=== PATIENT | female | born 2000 | race Caucasian/White ===

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

== ENCOUNTER 2024-04-04 14:44 | Inpatient (IN) ==
[2024-04-04 15:54] LABS: Basophils # (auto) 0.02 K/uL (0.00-0.20); Basophils % (auto) 0.2 %; Hematocrit (blood only) 33.8 % (37.0-47.0); Hemoglobin 11.1 g/dl (12.0-16.0); Immature Granulocytes # (auto) 0.03 K/uL (0.01-0.20); Immature Granulocytes % (auto) 0.3 %; Lymphocytes # (auto) 1.86 K/uL (1.20-3.40); Mean Corpuscular Hemoglobin 27.9 pg (25.0-34.0); Mean Corpuscular Hgb Conc 32.8 g/dL (32.0-36.0); Mean Corpuscular Volume 84.9 fL (80.0-100.0); Mean Platelet Volume 9.7 fL (9.4-12.4); Monocytes # (auto) 0.56 K/uL (0.11-0.59); Monocytes % (auto) 5.4 %; Neutrophils # (auto) 7.76 K/uL (1.40-6.50); Neutrophils % (auto) 75.1 %; Platelet Count 304 K/uL (130-400); RDW Standard Deviation 39.9 fL (36.4-46.3); Red Blood Count 3.98 M/uL (4.20-5.40); White Blood Count 10.33 K/ul (4.8-10.8)
[2024-04-04 16:08] LABS: BUN Creatinine Ratio 12.3 (10-20); Bilirubin Direct 0.1 mg/dl (0-0.2); Bilirubin,Total 0.3 mg/dl (0.2-1.0); Calcium 8.1 mg/dl (8.6-10.3); Creatinine Clr Calc Pharmacy 185.8 ml/min; Globulin 3.1 gm/dl (2.5-4.0); Potassium 3.9 mmol/L (3.5-5.1); Total Protein 6.1 gm/dl (6.0-8.3)
[2024-04-04 16:21] LABS: Total Protein Urine Random 5.3 mg/dl (0-11.9)
[2024-04-04 16:26] LABS: Creatinine Urine Random 27.3 mg/dl; Protein Creatinine Ratio Urine 0.2 (0-0.2)
--- NOTE | 2024-04-04 16:43 | History & Physical Report ---
Date of Service April 04, 2024 Assessment & Plan (1) Elevated blood pressure affecting , antepartum: Plan: Induction of labor. Medication to control blood pressure. History of Present Illness Chief Complaint: Elevated blood pressure. Intrauterine 37 weeks 4 days gestation. Primary Care Provider: Mone Robin PA-C Patient is a 24-year-old 1 para 0. She has been well dated with a first trimester ultrasound. Her due date is 04/21/2024. Scheduled for induction on 04/15/2024. Been getting weekly NSTs due to her weight. Received a call from [facility] today. She came in for her NST her blood pressures were elevated. Prior to today they ran in the 124 over 80s range. Today were getting pressures as high as 160/108. She feels good movement. Does not have any symptoms of headache dizziness or epigastric pain. Was placed on a monitor. Monitor sh owed a baseline in the 150s. With good [id number] variability. And several spontaneous accelerations. Allergies Allergy/AdvReac Type Severity Reaction Status Date / Time No Known Allergies Allergy Verified 03/23/24 18:56 Home Medications Medication Instructions Recorded Confirmed Type lamotrigine 25 mg tablet 50 mg PO HS 10/28/23 04/04/24 History lamotrigine 25 mg tablet 50 mg PO QAM 10/28/23 04/04/24 History iron,carbonyl 65 mg-vitamin C 125 1 tab PO DAILY 03/23/24 04/04/24 History mg tablet,delayed release (Vitron-C) sertraline 25 mg tablet 25 mg PO DAILY 03/23/24 04/04/24 History cyanocobalamin (vitamin B-12) 1,000 mcg PO DAILY 04/04/24 04/04/24 History 1,000 mcg tablet vit no.133-ferrous 1 tab PO 1XD 04/04/24 04/04/24 History fumarate 28 mg-folic acid 800 mcg tablet () Past Med/Surg History Problem List Elevated blood pressure affecting , antepartum Decreased movements affecting management of mother, antepartum Near syncope (Acute) Hypertension (Acute) Medical History Bipolar disorder managed with lamictal History of hypertension patient reports having HTN prior to gastric bypass Surgical History History of gastric bypass 2022 Family History Other Family history non-contributory Social History (Updated 04/04/24 @ 15:24 by Salima Robertson RN) Smoking Status: Never smoker Hx Alcohol Use: No Hx Substance Use: No Preferred Language: Macedonian Communication Ability: Effective Visual Impairment: No Limitations Hearing Ability: Normal Systems Requirements Planner Required: No marital status: marital status details: José Manuel Piedra [phone] Current Living Situation: Spouse Current Living Situation Comment: lives with , dog, and cat. changing litter box. 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 Trachea was midline. There was no cervical adenopathy. Lungs are clear to auscultation and percussion. There was no CVA tenderness. Abdomen was consistent with a term size fetus. No tenderness. No calf tenderness. Pelvic exam revealed a vertex presentation cervix was posterior 2 cm dilated 50% effaced moderately soft. -2 station. Results & Data Results & Data Vital Signs (Past 12 Hours) Vital Signs Temp Pulse Resp BP 04/04/24 16:35 108 H 180/115 H 04/04/24 16:20 99 H 183/118 H 04/04/24 16:04 86 160/106 H 04/04/24 15:38 100 H 159/101 H 04/04/24 15:16 93 H 144/95 H 04/04/24 15:05 18 04/04/24 15:05 37.5 C 18 04/04/24 15:02 100 H 139/102 H Diagnostic Findings Elevated blood pressure
[2024-04-04] MEDS ORDERED: CALCIUM CARBONATE 500 MG CHEWABLE TAB PO PRN (16:44)
[2024-04-04] MEDS ORDERED: OXYTOCIN 30 UNITS/NSS 30 UNITS/500 ML BAG IV PRN (16:44)
[2024-04-04] MEDS ORDERED: LIDOCAINE 1% LOCAL 20 ML VIAL INFIL PRN (16:44)
[2024-04-04] MEDS: miSOPROStoL 50 MCG TAB PO ONE (17:16)
[2024-04-04] MEDS: ACETAMINOPHEN 500 MG TAB PO PRN (19:11)
[2024-04-04] MEDS: LABETALOL HCL 100 MG TAB PO SCH (21:32)
[2024-04-04] MEDS: DINOPROSTONE 10 MG INSERT PV ONE (22:15)
[2024-04-04] MEDS: PENICILLIN GK 6 MU in SODIUM CHLORIDE 0.9% 250 ML IV STA (22:19)
--- NOTE | 2024-04-04 22:21 | Obstetrical Progress Note ---
Date of Service April 04, 2024 Subjective Patient is seen and examined. She is a 24-year-old G1, P0 at 37 weeks and 5 days of gestation who was admitted by Dr. Hardy for gestational hypertension, no proteinuria, normal labs. She was started on p.o. Cytotec for cervical ripening. Blood pressures were elevated initially now they are normal with single dose of p.o. labetalol. Patient denies headaches, change in her vision, nausea vomiting, No epigastric no right upper quadrant pain. She denies contractions, leakage of fluid, vaginal bleeding. She reports good movements. Her has been complicated by, 1. Obesity, status post gastric bypass surgery in 2022, 2. GBS positive, 3. Anxiety during she is on Zoloft and Lamictal, Patient denies any other medical problems. She denies history of STDs, she denies history of chlamydia, gonorrhea, herpes. No history of smoking alcohol or drug use. She desires to take her Zoloft and Lamictal tonight. I checked her cervix it is 2 cm dilated 30% effaced, posterior head is ballotable -3, discussed the findings and Cervidil cervical ripening and she accepted Cervidil was inserted without difficulty., heart rate category 1 reassuring, [place] with no contractions. Plan to monitor, check blood pressures regularly, penicillin for GBS, All questions were answered. Results & Data Vital Signs (Past 12 Hours) Vital Signs Temp Pulse Resp BP 04/04/24 22:06 88 04/04/24 22:06 131/82 04/04/24 21:51 85 04/04/24 21:51 127/73 04/04/24 21:32 93 H 04/04/24 21:32 140/84 04/04/24 20:50 90 04/04/24 20:50 120/56 L 04/04/24 20:34 78 04/04/24 20:34 140/78 04/04/24 20:21 90 04/04/24 20:21 143/79 H 04/04/24 20:04 82 04/04/24 20:04 140/83 04/04/24 19:50 84 04/04/24 19:50 147/87 H 04/04/24 19:34 91 H 04/04/24 19:34 141/88 H 04/04/24 19:20 86 04/04/24 19:20 159/80 H 04/04/24 19:10 37.0 C 18 04/04/24 19:07 88 04/04/24 19:07 140/84 04/04/24 19:06 18 04/04/24 19:06 37.0 C 18 04/04/24 18:49 88 04/04/24 18:49 148/83 H 04/04/24 18:34 92 H 04/04/24 18:34 154/88 H 04/04/24 18:23 89 04/04/24 18:23 149/83 H 04/04/24 18:06 92 H 04/04/24 18:06 158/88 H 04/04/24 17:50 88 04/04/24 17:50 148/88 H 04/04/24 17:34 86 04/04/24 17:34 146/89 H 04/04/24 17:19 90 04/04/24 17:19 156/87 H 04/04/24 17:04 80 04/04/24 17:04 142/81 H 04/04/24 16:56 98 H 04/04/24 16:56 161/103 H 04/04/24 16:35 108 H 180/115 H 04/04/24 16:20 99 H 183/118 H 04/04/24 16:04 86 160/106 H 04/04/24 15:38 100 H 159/101 H 04/04/24 15:16 93 H 144/95 H 04/04/24 15:05 18 04/04/24 15:05 37.5 C 18 04/04/24 15:02 100 H 139/102 H
--- OUTSIDE RECORDS SUMMARY | 2024-04-04 22:21 | External Medical Summary | Summary of Care ---
Author Name Unknown Organization [facility] Address [address] [place] [address] Phone [phone] Care Team Providers Care Elevators Inspector Name Role Phone Mone Robin PA-C Primary Care Provider [phone] Reason for Visit * Reason Comments Return Visit Encounter Details Date Type Department Care Team (Late st Contact Info) Description 03/26/2024 3:00 PM EST Office Visit Gynecology/Obstetric [facility] [address] [place] [address] Mo Norwood MD [address] [place] [address] High-risk in third trimester*; Previous gastric bypass affecting , antepartum; Chronic hypertension in ; Bipolar disease during in third trimester (HCC); Obesity in , antepartum; Maternal asthma complicating ; Maternal varicella, non-immune; Choroid plexus cyst of fetus affecting care of mother, antepartum, single or unspecified fetus Allergies No known active allergiesdocumented as of this encounter (statuses as of 03/27/2024) Medications 28-0.8 MG Oral Tablet Take by mouth. Active lamoTRIgine 25 MG Oral Tablet (LaMICtal) Take 2 Tablets by mouth in the morning and 2 Tablets before bedtime. 4 Active Magnesium 500 MG Oral Capsule Take 1 Capsule by mouth in the morning. Active Sertraline HCl 50 MG Oral Tablet (Zoloft) TAKE ONE-HALF TABLET BY MOUTH ONCE DAILY X7DAYS THEN TAKE ONE TABLET DAILY 4 Active Iron-Vitamin C 65-125 MG Oral Tablet (Vitron C)Indications:An tepartum anemia complicating Take 1 Tablet by mouth in the morning. 30 Tablet 5 4 Active Vitamin B-12 1000 MCG Oral Tablet (Cyanocobalamin) Indications:Ante anemia complicating Take 1 Tablet by mouth in the morning. 30 Tablet 5 4 Active OneTouch Verio w/Device KitIndications:O besity in , antepartum Use as directed. Check blood sugars 4x/day for 2 weeks 1 Kit 4 025 Discontin ued(Medic ation List Clean Up) OneTouch Verio In Vitro Strip (Glucose Blood)Indication s:Obesity in , antepartum Use as directed 100 Strip 3 4 025 Discontin ued(Medic ation List Clean Up) OneTouch UltraSoft LancetsIndicatio ns:Obesity in , antepartum Use as directed 100 Each 2 4 025 Discontin ued(Medic ation List Clean Up) Aspirin 81 MG Oral Tablet ChewableIndicati ons:High-risk in first trimester,Chroni c hypertension in ,Obesit y in , antepartum Take 1 Tablet by mouth in the morning. 100 Tablet 3 4 025 Discontin ued(Medic ation List Clean Up) Docusate Sodium 100 MG Oral Capsule (Colace)Indicati ons:Antepartum anemia complicating Take 1 capsule by mouth twice daily as needed. 60 Capsule 5 4 025 Discontin ued(Medic ation List Clean Up) metroNIDAZOLE 0.75 % Vaginal Gel (Metrogel-Vagina l) Administer into the vagina every night at bedtime. For 5 days. 70 g 4 025 Discontin ued(Medic ation List Clean Up) documented as of this encounter (statuses as of 03/27/2024) Active Problems Problem Noted Date Diagnosed Date Antepartum anemia complicating 024 Choroid plexus cysts, , affecting care of mother, antepartum 12/04/2023 Assessment & Plan (12/04/2023 2:15 PM EDT): Reviewed with patient that although choroid plexus cysts (SOAKING PIT OPERATOR) can be associated with an increased risk for aneuploidy (particularly Trisomy 18), when choroid plexus cysts (SOAKING PIT OPERATOR) are noted in isolation of any other abnormalities for a woman who is at low risk (age less than 35, normal genetic screening) choroid plexus cysts (SOAKING PIT OPERATOR) are considered a normal variant of and no further work-up is recommended. They occur in 1-2% of genetically healthy pregnancies, often resolve in the third trimester, and are not associated with neurologic impairment. Maternal varicella, non-immune 09/24/2023 High-risk 09/21/2023 Previous gastric bypass affecting , ant epartum 09/21/2023 Overview (09/25/2023): History of gastric bypass in May 2022 Chronic hypertension in 09/21/2023 Overview (10/08/2023): Diagnosed in 2015 No current antihypertensives Recommend daily low dose ASA Baseline Preeclampsia Labs Lab Results Component Value Date/Time PLT 309 09/21/2023 09:37 AM CREATININE - [facility] 0.7 09/21/2023 09:37 AM AST - [facility] 16 09/21/2023 09:37 AM ALT - [facility] 14 09/21/2023 09:37 AM PROTEIN/ CREATININE RATIO, URINE - [facility] 95 09/21/2023 09:29 AM BP Readings from Last 5 Encounters: 10/05/23 131/86 09/21/23 120/68 01/18/23 128/80 09/18/22 144/98 09/14/22 128/78 Assessment & Plan (01/02/2024 8:41 AM EST): BP Readings from Last 5 Encounters: 01/01/24 120/67 12/05/23 120/70 11/09/23 126/70 10/19/23 124/76 10/05/23 131/86 BP currently stable without medication. Initiate therapy to maintain BP < 140/90. Karen states she has been unable to remember to take her low dose ASA. Would not strongly recommend to initiate therapy at this point, as is most effective when started at < 16 weeks to allow for improved placental development. Thus far BP stable, however Karen has risk factors for the development of pre-e. Assessment & Plan (12/04/2023 1:38 PM EDT): BP Readings from Last 5 Encounters: 11/09/23 126/70 10/19/23 124/76 10/05/23 131/86 09/21/23 120/68 01/18/23 128/80 BP currently stable without medication. Initiate therapy to maintain BP < 140/90. Formal MFM consult rescheduled (has been cancelled twice). Bipolar disease during 09/21/2023 Overview (10/08/2023): Managed with Lamictal Lamictal (Lamotrigine) Lamotrigine is a medication that is used to treat some types of epilepsy (medical condition that causes seizures). It is also used to treat bipolar disorder. A common brand name for lamotrigine is Lamictal. 2. Lamotrigine is cleared from the body faster during . This means that many people who are need to increase their dose of lamotrigine to keep the medication at the right level to work for them. Your healthcare provider can order blood tests to check the levels of medication. People who need to increase the dose of lamotrigine during will also need to work with their healthcare providers after the baby is born to reduce their medication dose. 3. Studies have not found that lamotrigine is associated with a higher chance for miscarriage over the background risk. 4. One study suggested a less than 1% increase in oral clefts (the lip and/or roof of the baby s mouth do not form correctly and need surgery to repair after ), but this finding was not confirmed by other studies. Assessment & Plan (12/04/2023 2:37 PM EDT): Now on lamictal + Zoloft for worsening anxiety. Both are reasonable in . Anxiety may improve or worsen especially during the period; close follow-up with mental health and OB providers encouraged. Obesity in , antepartum 09/21/2023 Overview (10/19/2023): Pregravid BMI 39.31 Class 2 Completed early finger sticks for glucose monitoring, WNL. Will need to repeat this at 26-28 weeks. Assessment & Plan (03/03/2024 3:40 PM EST): She presents for follow-up of growth. She has a history of gastric bypass, CHTN (not on medication), bipolar disease, class II obesity, asthma, and medication exposure (Lamictal). Today's ultrasound notes the following: The estimated weight is appropriate for gestational age in the 27th percentile. The visualized anatomy is unremarkable in appearance. The ARMANDO is normal. Assessment & Plan (02/04/2024 1:48 PM EST): I reviewed the ultrasound. The overall estimated weight is consistent with the 32nd percentile for the gestational age and the anatomy that was visualized appears unremarkable. The amniotic fluid volume is normal at 16 cm and the fetus is in the vertex presentation. Assessment & Plan (12/04/2023 2:35 PM EDT): Low risk NIPT. Unable to complete 1'GTT due to bypass; checked sugars at home. Plan of care reviewed; will schedule serial growth assessments q4-6 weeks. Karen notes that she has struggled with some lower sugars and is meeting with GI nutrition to discuss best diet post-bypass. Assessment & Plan (10/05/2023 3:35 PM EDT): She presents for an early assessment. She has a history of gastric bypass, CHTN, bipolar disease, class II obesity, asthma, and medication exposure (Lamictal). Today's ultrasound notes the following: Single viable intrauterine with biometry consistent with clinical dates. The visualized early anatomy is unremarkable in appearance. Maternal asthma complicating Overview (10/08/2023): Managed with Albuterol as needed 10/08/23 last albuterol use: ---- Denies hospitalizations or intubations due to asthma S/P gastric bypass 01/18/2023 Asthma, mild persistent 06/26/2022 Intermittent asthma with reliever use up to twic e per week 06/26/2022 Deviated nasal septum 02/22/2018 Hypertrophy of both inferior nasal turbinates Hypertension 06/01/2015 Asthma, severity to be determined 04/20/2004 Overview (05/31/2015): ICD-10 update of inactive term NONALLERGIC RHINITIS 04/20/2004 Bipolar disorder Estimated Date of Delivery Comme nts Yes 04/21/2024 Based on last me nstrual period of 07/16/2023 (Exact Date) documented as of this encounter (statuses as of 03/27/2024) Resolved Problems Problem Noted Date Diagnosed Date Resolved Date Asthma in remission 06/26/2022 06/27/19 23 Asthma, moderate persistent 06/26/2022 06/26/2022 Asthma, severe persistent 06/26/2022 BMI 50.0-59.9, adult 06/26/2022 023 Obesity, morbid (more than 1 00 lbs over ideal weight or BMI > 40) 08/01/2021 03/27/2023 Overview: Per Obesity protocol Other specified persistent mood disorders 12/24/2020 06/26/2022 BMI 50.0-59.9, adult 03/17/2019 022 Overview: Per Obesity protocol Body mass index (BMI) of 45. 0 to 49.9 in adult 12/31/2017 04/02/2019 Overview: Per Obesity protocol #1 - Prediabetes 11/26/2017 04/04/2018 Overview: Per Prediabetes protocol #1 Body mass index (BMI) of 40. 0 to 44.9 in adult 11/20/2016 01/04/2018 Overview: Per Obesity protocol #1 HTN, goal below 130/80 06/01/201506/26 documented as of this encounter (statuses as of 03/27/2024) Immunizations Name Administration Dates Next Due DTaP Dipth/Tet/Acell Pertussis (Infanrix), Peds 09/30/2003,10/10/1999,1998,08/20,1998 H1N1 2009 Influenza, IM 12/22/2008 HIB PRP-T, 4 Dose, PF, IM (H iberix, ActHib) 10/10/1999,1998,1998,07/01 HPV Vaccine, 4-Valent 06/22/2011 Hepatitis A, Ped/Adol., 18 y ear and below, 2-Dose 07/12/2011 Hepatitis B, 0-19 yrs 1998,1998,03/22 IPV - Polio Virus Vaccine (Inact) 2003,1998,1998,07/01 MMR - Measles/Mumps/Rubella Vaccine 09/30/2003,0 10/10/1999 Meningococcal Conjugate Vacc ine (Menactra/Menveo) 10/12/2015,07/12/2011 PPD 09/22/2019, 9,04/30/2018,02/15,02/05/2017,02/25/2016,02/18/2016 ,04/13/1999 Pneumococcal Conjugate Vacc, 13 Valent (Prevnar) 10/10/1999 Seasonal Influenza, PF, 6 M & above, IM , (FluLaval or Fluzone) 11/29/2012,11/15/2011,11/22/2010,11/10,11/23/2008,12/09/2007 Seasonal Influenza, Quadriva lent, No Preserve, IM 11/02/2018,12/12/2017 TDAP (age 10 and older)(Boostrix) 07/12/2011 TDAP, Age 7 and older, IM (Adacel) 02/01/2024 Varicella Vaccine (Chicken Pox) 07/12/2011,04/13 documented as of this encounter Social History Tobacco Use Types Packs/Day Years Used Date Smoking Tobacco: Never Smokeless Tobacco: Never Comments:Passive smoke mothe rs and fathers homes. Alcohol Use Standard Drinks/Week Comments No 0 (1 standard drink = 0.6 oz pur e alcohol) PHQ-2 Answer Date Recorded PHQ-2 Score 0 11/05/2018 Hunger Vital Sign Answer Date Recorded Within the past 12 months, y ou worried that your food would run out before you got the money to buy more. Never true 08/24/19 24 Within the past 12 months, t he food you bought just didn't last and you didn't have money to get more. Never true 08/24/2023 [place] Depression Scale Answer Date Recorded [place] Depression Scale Total 5 09/21/2023 The thought of harming myself has occurred to me . Never 09/21/2023 Childcare Answer Date Recorded Do you feel overwhelmed with taking care of a child, family member or friend? No 08/24/2023 Does your family need help f inding childcare? (Household - for ages 0-17 years) Not on file 08/24/2023 Clothing Answer Date Recorded Have you been unable to get clothing when it was really needed? No 08/24/2023 Is your family able to get c lothes or diapers when needed? (Household - for ages 0-17 years) Not on file 08/24/2023 Personal Safety Answer Date Recorded Do you feel unsafe or have concerns for your saf ety? No 08/24/2023 Do you have concerns for you r family's safety? (Household - for ages 0-17 years) Not on file 08/24/2023 Utilities Answer Date Recorded Do you have trouble paying y our heating, water, or electric bill? No 08/24/2023 Is your family able to pay t he heat, water, or electric bill? (Household - for ages 0-17 years) Not on file 08/24/2023 Does your family have access to good internet? (Household - for ages 0-17 years) Not on file 08/24/2023 Employment Status Answer Date Recorded Are you unemployed or without regular income? No 08/24/2023 Does the household have a re gular source of income? (Household - for ages 0-17 years) Not on file 08/24/2023 Social Connections Answer Date Recorded How often do you feel lonely or isolated from th ose around you? Never 08/24/2023 Financial Resource Strain Answer Date R ecorded Do you have any trouble payi ng for your medications, or do you think you might in the future? No 08/24/2023 Does your family have troubl e paying for medicine? (Household - for ages 0-17 years) Not on file 08/24/2023 Transportation Needs Answer Date Record ed Do you have trouble getting a ride to medical visits or work? (Adult - for ages 18 years and over) Not on file 08/24/2023 Does your family have a hard time getting a ride to doctors visits? (Household - for ages 0-17 years) Not on file 08/24/2023 Has lack of transportation k ept you from medical appointments, meetings, work, or from getting things needed for daily living? Check all that apply. Yes, it has kept me from medical appointments;No 08/24/2023 Do you (or your family) have trouble finding or paying for a ride (transportation)? (Household - for ages 0-17 years) Not on file 08/24/2023 Housing Stability Answer Date Recorded Do you currently live in a s helter or have no steady place to sleep at night? No 08/24/2023 Do you think you are at risk of becoming homeless? (Adult - for ages 18 years and over) Not on file 08/24/2023 Does your family worry about paying for your home or becoming homeless? (Household - for ages 0-17 years) Not on file 0 08/24/2023 Are you homeless or worried that you might be in the future? No 08/24/2023 Are you (or your family) kamala eless or worried that you might be in the future? (Household - for ages 0-17 years) Not on file Food Insecurity Answer Date Recorded Do you need food for this week? No 08/24/2023 Are you able to get enough f ood for your family? (Household - for ages 0-17 years) Not on file 08/24/2023 Does your family need food t his week? (Household - for ages 0-17 years) Not on file 08/24/2023 Do you always have enough fo od for your family? (Household - for ages 0-17 years) Not on file 08/24/2023 Food Insecurity Answer Date Recorded Within the past 12 months, y ou worried that your food would run out before you got the money to buy more. Never true 08/24/19 24 Within the past 12 months, t he food you bought just didn't last and you didn't have money to get more. Never true 08/24/2023 Do you need food for this week? No 08/24/2023 Estimated Date of Delivery Comme nts Yes 04/21/2024 Based on last me nstrual period of 07/16/2023 (Exact Date) Sex and Gender Information Value Date Recorded Sex Assigned at Female 06/10/2023 8:12 PM EDT Legal Sex Female 7:01 AM EST Gender Identity Female 06/10/2023 8:12 PM EDT Sexual Orientation Straight 08/24/2023 8: 07 PM EDT documented as of this encounter Last Filed Vital Signs Vital Sign Reading Time Taken Comments Blood Pressure 122/76 03/26/2024 2:54 PM EST Pulse - - Temperature - - Respiratory Rate - - Oxygen Saturation - - Inhaled Oxygen Concentration - - Weight 118.8 kg (262 lb) 03/26/2024 2:54 PM EST Height 157.5 cm (5' 2") 03/26/2024 2:54 PM EST Body Mass Index 47.92 03/26/2024 2:54 PM EST documented in this encounter Progress Notes * Mo Norwood MD - 03/26/2024 3:23 PM EST 1st time seeing pt Doing well Gastric bypass - Elevated BMI CHTN- no meds. Not taking baby Asprin. Pt tells me she was told by M to d/c Baby Asprin Starting NST @ 37 weeks GBS cults obtained today * Aliya Gilbert LPN - 03/26/2024 2:55 PM EST [id number] Needs gbs documented in this encounter Plan of Treatment Upcoming Encounters Date Type Department Care Team (Late st Contact Info) Description 2024 3:30 PM EST Office Visit [facility], [address] [address] Isaías Suggs MD [address] [place] [address] 2024 3:30 PM EST Imaging Radiology [facility] [address] [place] [address] 04/09/2024 2:30 PM EST Office [facility] [address] [place] [address] Mo Norwood MD [address] [place] [address] Tawny Drisclol Stress Tests [facility] [address] [place] [address] 04/16/2024 2:30 PM EST Office [facility] [address] [place] [address] oM Norwood MD [address] [place] [address] Tawny Driscoll Stress Tests [facility] [address] [place] [address] Pending Results Name Type Priority Associated Diagnoses Date /Time GROUP B STREP CULTURE/PCR Lab Routine High-risk in third trimester 03/26/2024 3:47 PM EST Scheduled Orders Name Type Priority Associated Diagnoses Orde r Schedule GROUP B STREP CULTURE/PCR Lab Routine High-risk in third trimester Expected: 03/26/2024, Expires: 03/26/2025 Health Maintenance Due Date Last Done Comments Pneumococcal Vaccine: Pediat rics (0 to 5 Years) and At-Risk Patients (6 to 18 Years and 19+ Years) (1 of 1 - PPSV23) 2004 10/10/1999 HPV (Gardasil) Vaccine (2 - 2-dose series) 12/23/2011 06/22/2011 COVID-19 Vaccine (2023-2 5 season) 2023 Influenza Vaccine (FLU shot) (#1) 2023 11/02/2018, 11/02/2018, 12/12/2017, Additional history exists GFR 03/23/2025 03/23/2024, 12/06/2023, 09/21/2023, Additional history exists Pap Smear 09/14/2025 09/14/2022 DTap/Tdap Vaccines (8 - Td o r Tdap) 01/31/2034 02/01/2024, 07/12/2011, 09/30/2003, Additional history exists Hepatitis B Vaccine Completed 1998, 1998, 1998 MENINGOCOCCAL (MENACTRA/MENVEO) Completed 10/12/2015, 10/12/2015, 10/12/2015, Additional history exists Albumin/Creatinine Ratio Discontinued 03/06/2019 Gonorrhea / Chlamydia Screen Discontinued 03/2023, 03/06/2019, 11/01/2017 documented as of this encounter Medical Devices Not on filedocumented as of this encounter Visit Diagnoses Diagnosis Obesity in , antepartum- Primary Obesity complicating , childbirth, or the puerperium, antepartum condition or complication Previous gastric bypass affecting , antepartum Maternal asthma complicating Other current maternal conditions classifiable elsewhere, complicating , childbirth, or the puerperium, unspecified as to episode of care Chronic hypertension in Benign essential hypertension complicating , childbirth, and the puerperium, unspecified as to episode of care Bipolar disease during in first trimester (HCC) 11 weeks gestation of state, incidental Other specified related conditions, unspecified trimester Obesity in , antepartum- Primary Obesity complicating , childbirth, or the puerperium, antepartum condition or complication Previous gastric bypass affecting , antepartum Chronic hypertension in Benign essential hypertension complicating , childbirth, and the puerperium, unspecified as to episode of care Encounter for anatomic survey 20 weeks gestation of state, incidental Choroid plexus cyst of fetus affecting care of mother, antepartum, single or unspecified fetus Other specified related conditions, second trimester Obesity in , antepartum- Primary Obesity complicating , childbirth, or the puerperium, antepartum condition or complication Chronic hypertension in Benign essential hypertension complicating , childbirth, and the puerperium, unspecified as to episode of care Ultrasound for screening for growth restriction screening for growth retardation using ultrasonics 24 weeks gestation of state, incidental Previous gastric bypass affecting , antepartum- Primary Chronic hypertension in Benign essential hypertension complicating , childbirth, and the puerperium, unspecified as to episode of care Obesity in , antepartum Obesity complicating , childbirth, or the puerperium, antepartum condition or complication Previous gastric bypass affecting , antepartum- Primary Obesity in , antepartum Obesity complicating , childbirth, or the puerperium, antepartum condition or complication Chronic hypertension in Benign essential hypertension complicating , childbirth, and the puerperium, unspecified as to episode of care High-risk in third trimester- Primary Previous gastric bypass affecting , antepartum Chronic hypertension in Benign essential hypertension complicating , childbirth, and the puerperium, unspecified as to episode of care Bipolar disease during in third trimester (HCC) Obesity in , antepartum Obesity complicating , childbirth, or the puerperium, antepartum condition or complication Maternal asthma complicating Other current maternal conditions classifiable elsewhere, complicating , childbirth, or the puerperium, unspecified as to episode of care Maternal varicella, non-immune Supervision of other high-risk Choroid plexus cyst of fetus affecting care of mother, antepartum, single or unspecified fetus documented in this encounter Care Teams Elevators Inspector Relationship Specialty Start Date End Date Mone Robin PA-C PCP - General Physician Keno Clerk 07/26/21 documented as of this encounter
--- OUTSIDE RECORDS SUMMARY | 2024-04-04 22:21 | External Medical Summary | Summary of Care ---
Author Name Unknown Organization [facility] Address [address] [facility] [address] Phone [phone] Care Team Providers Care Instrument Tester Name Role Phone Mone Robin PA-C Primary Care Provider [phone] Reason for Visit * Reason Comments Return Visit Non Stress Test Encounter Details Date Type Department Care Team (Late st Contact Info) Description 04/01/2024 2:30 PM EST Office Visit Gynecology/Obstetric [facility]ioAnnellis Driscoll [address] [place] [address] Philly Tatum CRNP [address] [place] [address] High-risk in third trimester*; Previous gastric bypass affecting , antepartum; Chronic hypertension in ; Bipolar disease during , antepartum (HCC); Obesity in , antepartum; Maternal asthma complicating ; Maternal varicella, non-immune; Polyhydramnios in third trimester complication, fetus 1 of multiple gestation Allergies No known active allergiesdocumented as of this encounter (statuses as of 04/02/2024) Medications 28-0.8 MG Oral Tablet Take by [...] Iron-Vitamin C 65-125 MG Oral Tablet (Vitron C)Indications:Ant epartum anemia complicating Take 1 Tablet by mouth in the morning. 30 Tablet 5 4 Active Vitamin B-12 1000 MCG Oral Tablet (Cyanocobalamin)I ndications:Antepa rtum anemia complicating Take 1 Tablet by mouth in the morning. 30 Tablet 5 4 Active documented as of this encounter (statuses as of 04/02/2024) Active Problems Problem Noted Date Diagnosed Date Polyhydramnios in third trimester 2024 Assessment & Plan (2024 3:51 PM EST): I reviewed the ultrasound with her. The overall estimated weight is consistent with the 50th percentile for the gestational age and the abdominal circumference is consistent with the 95th percentile for the gestational age. The amniotic fluid volume is elevated at 25 cm, indicating mild polyhydramnios. The fetus is in the vertex presentation and the anatomy that was visualized appears unremarkable. The biophysical profile is 8/8. CONSIDERATIONS: Polyhydramnios is the presence of elevated levels of amniotic fluid index (ARMANDO) greater than or equal to 24 cm or a maximum of vertical pocket (MVP) greater than or equal to 8 cm. Polyhydramnios is categorized as: Mild ARMANDO of 24.0-29.9 cm Moderate ARMANDO of 30.0-34.9 cm Severe ARMANDO of greater than or equal to 35 cm We discussed potential etiologies and complications associated with polyhydramnios. Mild polyhydramnios often resolves spontaneously without negative effects on the . RECOMMENDATIONS: Re-screen for GDM. The patient states that she was not able to perform the 1 hour Glucola due to a history of gastric bypass surgery. She did check her blood sugars for 1 week. She states that she will start to check her blood sugars over the next week. Recommend delivery by 39 weeks. As required by [place] Act 112, the Patient Test Result Information Act, I have discussed with the patient the significant findings from the diagnostic imaging service performed today. They have expressed their understanding and signed the acknowledgement form. Antepartum anemia complicating 024 Choroid plexus cysts, , affecting care of mother, antepartum 12/04/2023 Assessment & Plan (12/04/2023 2:15 PM EDT): Reviewed with patient that although choroid plexus cysts (WATER HYDRANT INSTALLER) can be associated with an increased risk for aneuploidy (particularly Trisomy 18), when choroid plexus cysts (WATER HYDRANT INSTALLER) are noted in isolation of any other abnormalities for a woman who is at low risk (age less than 35, normal genetic screening) choroid plexus cysts (WATER HYDRANT INSTALLER) are considered a normal variant of and [...] is unremarkable in appearance. Maternal asthma complicating 4 Overview (10/08/2023): Managed with Albuterol as needed [...] as of this encounter (statuses as of 04/02/2024) Resolved Problems Problem Noted Date Diagnosed Date [...] as of this encounter (statuses as of 04/02/2024) Immunizations Name Administration Dates Next Due DTaP Dipth/Tet/Acell Pertussis (Infanrix), Peds 09/30/2003,10/10/1999 H1N1 2009 Influenza, IM 12/22/2008 HIB PRP-T, 4 Dose, PF, IM (H iberix, ActHib) 10/10/1999,1998,1998,07/01 HPV Vaccine, 4-Valent 06/22/2011 Hepatitis A, Ped/Adol., 18 y ear and below, 2-Dose 07/12/2011 Hepatitis B, 0-19 yrs 1998,1998,03/22 IPV - Polio Virus Vaccine (Inact) 09/30/2003 MMR - Measles/Mumps/Rubella Vaccine 09/30/2003,0 10/10/1999 Meningococcal Conjugate Vacc ine (Menactra/Menveo) 10/12/2015,07/12/2011 PPD 09/22/2019, 9,04/30/2018,02/15,02/05/2017,02/25/2016,02/18/2016 Pneumococcal Conjugate Vacc, 13 Valent (Prevnar) 10/10/1999 Seasonal Influenza, PF, 6 M & above, IM , (FluLaval or Fluzone) 11/29/2012,11/15/2011,11/22/2010,11/10,11/23/2008,12/09/2007 Seasonal Influenza, Quadriva lent, No Preserve, IM 11/02/2018,12/12/2017 TDAP (age 10 and older)(Boostrix) 07/12/2011 TDAP, Age 7 and older, IM (Adacel) 02/01/2024 Varicella Vaccine (Chicken Pox) 07/12/2011 documented as of this encounter Social History [...] the money to buy more. Never true 04/01/19 25 Within the past 12 months, t he food you bought just didn't last and you didn't have money to get more. Never true 04/01/2024 [place] Depression Scale Answer Date Recorded [place] Depression Scale Total 5 09/21/2023 The thought of harming myself has occurred to me . Never 09/21/2023 Childcare Answer Date Recorded Do you feel overwhelmed with taking care of a child, family member or friend? No 04/01/2024 Does your family need help f inding childcare? (Household - for ages 0-17 years) Not on file 04/01/2024 Clothing Answer Date Recorded Have you been unable to get clothing when it was really needed? No 04/01/2024 Is your family able to get c lothes or diapers when needed? (Household - for ages 0-17 years) Not on file 04/01/2024 Personal Safety Answer Date Recorded Do you feel unsafe or have concerns for your saf ety? No 04/01/2024 Do you have concerns for you r family's safety? (Household - for ages 0-17 years) Not on file 04/01/2024 Utilities Answer Date Recorded Do you have trouble paying y our heating, water, or electric bill? No 04/01/2024 Is your family able to pay t he heat, water, or electric bill? (Household - for ages 0-17 years) Not on file 04/01/2024 Does your family have access to good internet? (Household - for ages 0-17 years) Not on file 04/01/2024 Employment Status Answer Date Recorded Are you unemployed or without regular income? No 04/01/2024 Does the household have a re gular source of income? (Household - for ages 0-17 years) Not on file 04/01/2024 Social Connections Answer Date Recorded How often do you feel lonely or isolated from th ose around you? Never 04/01/2024 Financial Resource Strain Answer Date R ecorded Do you have any trouble payi ng for your medications, or do you think you might in the future? No 04/01/2024 Does your family have troubl e paying for medicine? (Household - for ages 0-17 years) Not on file 04/01/2024 Transportation Needs Answer Date Record ed Do you have trouble getting a ride to medical visits or work? (Adult - for ages 18 years and over) Not on file 04/01/2024 Does your family have a hard time getting a ride to doctors visits? (Household - for ages 0-17 years) Not on file 04/01/2024 Has lack of transportation k ept you from medical appointments, meetings, work, or from getting things needed for daily living? Check all that apply. No 04/01/2024 Do you (or your family) have trouble finding or paying for a ride (transportation)? (Household - for ages 0-17 years) Not on file 04/01/2024 Housing Stability Answer Date Recorded Do you currently live in a s helter or have no steady place to sleep at night? No 04/01/2024 Do you think you are at risk of becoming homeless? (Adult - for ages 18 years and over) Not on file 04/01/2024 Does your family worry about paying for your home or becoming homeless? (Household - for ages 0-17 years) Not on file 0 04/01/2024 Are you homeless or worried that you might be in the future? No 04/01/2024 Are you (or your family) kamala eless [...] the money to buy more. Never true 04/01/19 25 Within the past 12 months, t he food you bought just didn't last and you didn't have money to get more. Never true 04/01/2024 Do you need food for this week? No 04/01/2024 Estimated Date of Delivery Comme nts Yes [...] Sign Reading Time Taken Comments Blood Pressure 124/82 04/01/2024 2:03 PM EST Pulse - - Temperature - - Respiratory Rate - - Oxygen Saturation - - Inhaled Oxygen Concentration - - Weight 121.2 kg (267 lb 3.2 oz) 04/01/2024 2:03 PM EST Height - - Body Mass Index 48.87 03/26/2024 2:54 PM EST documented in this encounter Progress Notes * Philly Tatum CRNP - 04/01/2024 2:20 PM EST 37w1d MFM appt yesterday, found to have mild polyhydramnios. Per note, recommend delivery by 39w. She started checking blood sugars after MFM appt, has completed 3 thus far and all WNL. She reports swelling in legs as well as arms. Trace to +1 edema noted. Recommend compression stockings. No other concerns today. Baby is active, no contractions. ASSESSMENT assessment with Non-stress Test completed on 04/01/2024 at 37.1weeks gestation for indication of obesity heart baseline: 130 bpm Variability: Moderate Decelerations: absent Accelerations: present Contractions: None NST start time: 1356 NST stop time: 1423 NST strip reviewed, interpreted, and approved by OB provider, DOC Hartman . NST strip stored in clinic storage file * Mila Chavarria CMA - 04/01/2024 2:03 PM EST 37w1d + nausea Having increased swelling in both lower legs. documented in this encounter Plan of Treatment Upcoming Encounters Date Type Department Care Team (Late st Contact Info) Description 04/09/2024 2:30 PM EST Office Visit Gynecology/Obstetrics Eleno Driscoll [address] [place] [address] Mo Norwood MD [address] [place] [address] Tawny Driscoll Stress Tests [facility] [address] [place] [address] 04/16/2024 2:30 PM EST Office Visit Gynecology/Obstetrics Eleno Driscoll [address] [place] [address] Mo Norwood MD [address] [place] [address] Tawny Driscoll Stress Tests [facility] [address] [place] [address] Health Maintenance Due Date Last Done Comments Pneumococcal Vaccine: Pediat rics (0 to 5 Years) and At-Risk Patients (6 to 18 Years and 19+ Years) (1 of 1 - PPSV23) 2004 10/10/1999 HPV (Gardasil) Vaccine (2 - 2-dose series) 12/23/2011 06/22/2011 COVID-19 Vaccine ( - 2023-2 5 season) 2023 Influenza Vaccine (FLU shot) (#1) 2023 11/02/2018, 11/02/2018, 12/12/2017, Additional history exists GFR 03/23/2025 03/23/2024, 06/2023, 09/21/2023, Additional history exists Pap Smear 09/14/2025 [...] Not on filedocumented as of this encounter Procedures Procedure Name Priority Date/Time Associated Diagnosis Comments URINALYSIS OBSTETRICS, POINT OF CARE KADE[place] 04/01/2024 2:36 PM EST documented in this encounter Results * (ABNORMAL) URINALYSIS OBSTETRICS, POINT OF CARE (04/01/2024 2:36 PM EST) Color, Urine Yellow Light Yellow, Yellow 04/01/2024 2:39 PM EST [facility] [place] [facility] Clarity, Urine Clear Clear 04/01/2024 2:39 PM EST [facility] [place] [facility] Glucose, Urine Negative Negative mg/dL 04/01/2024 2:39 PM EST [facility] [place] [facility] Bilirubin, Urine Negative Negative 04/01/2024 2:39 PM EST [facility] [place] [facility] Ketone, Urine Negative Negative mg/dL 04/01/2024 2:39 PM EST [facility] [place] [facility] Specific [place], Urine 1.015 1.003 - 1.030 04/01/2024 2:39 PM EST [facility] [place] [facility] Blood, Urine Negative Negative 04/01/2024 2:39 PM EST [facility] [place] [facility] pH, Urine 6.0 5.0, 5.5, 6.0, 6.5, 7.0, 7.5 units 04/01/2024 2:39 PM EST [facility] [place] [facility] Protein, Urine Negative Negative mg/dL 04/01/2024 2:39 PM EST [facility] [place] [facility] Urobilinogen, Urine 0.2 0.2, 1.0 mg/dL 04/01/2024 2:39 PM EST [facility] [place] [facility] Nitrite, Urine Negative Negative 04/01/2024 2:39 PM EST [facility] [place] [facility] Esterase, Urine Trace(A) Negative 04/01/2024 2:39 PM EST [facility] [place] [facility] Urine 04/01/2024 2:36 PM EST 04/01/2024 2:39 PM EST Philly ROACH [facility] POINT OF CARE TE ST DOCKED DEVICE UNSOLICITED RESULTS Final Result [facility] [place] [facility] [address] [place] [address] documented in this encounter Visit Diagnoses Diagnosis Obesity in [...] to episode of care Chronic hypertension in - Primary Benign essential hypertension complicating , childbirth, and the puerperium, unspecified as to episode of care Obesity in , antepartum Obesity complicating , childbirth, or the puerperium, antepartum condition or complication Previous gastric bypass affecting , antepartum Polyhydramnios in third trimester complication, single or unspecified fetus High-risk in third trimester- Primary Previous gastric bypass affecting , antepartum Chronic hypertension in Benign essential hypertension complicating , childbirth, and the puerperium, unspecified as to episode of care Bipolar disease during , antepartum (HCC) Obesity in , antepartum Obesity complicating , childbirth, or the puerperium, antepartum condition or complication Maternal asthma complicating Other current maternal conditions classifiable elsewhere, complicating , childbirth, or the puerperium, unspecified as to episode of care Maternal varicella, non-immune Supervision of other high-risk Polyhydramnios in third trimester complication, fetus 1 of multiple gestation documented in this encounter Care Teams Instrument Tester Relationship Specialty Start Date End Date Mone Robin PA-C PCP - General Physician Fabrication Manager 07/26/21 documented as of this encounter
--- OUTSIDE RECORDS SUMMARY | 2024-04-04 22:21 | External Medical Summary | Summary of Care ---
Author Name Unknown Organization [facility] Address [address] [place] [address] Phone [phone] Care Team Providers Care Makeup Instructor Name Role Phone Mone Robin PA-C Primary Care Provider [phone] Reason for Visit * Reason Comments Ultrasound Encounter Details Date Type Department Care Team (Late st Contact Info) Description 2024 3:30 PM EST Office Visit Hose Suspender C[facility] Obstetrics [facility] [place] [address], [place] [id number] Isaías Suggs MD [address] [place] [address] Chronic hypertension in *; Obesity in , antepartum; Previous gastric bypass affecting , antepartum; Polyhydramnios in third trimester complication, single or unspecified fetus Allergies No known active allergiesdocumented as of this encounter (statuses as of 04/01/2024) Medications 28-0.8 MG Oral Tablet Take by [...] as of this encounter (statuses as of 04/01/2024) Active Problems Problem Noted Date Diagnosed Date [...] with patient that although choroid plexus cysts (EDGING CATCHER) can be associated with an increased risk for aneuploidy (particularly Trisomy 18), when choroid plexus cysts (EDGING CATCHER) are noted in isolation of any other abnormalities for a woman who is at low risk (age less than 35, normal genetic screening) choroid plexus cysts (EDGING CATCHER) are considered a normal variant of and [...] as of this encounter (statuses as of 04/01/2024) Resolved Problems Problem Noted Date Diagnosed Date [...] as of this encounter (statuses as of 04/01/2024) Immunizations Name Administration Dates Next Due DTaP [...] money to get more. Never true 08/24/2023 [place] Depression Scale Answer Date Recorded [place] Depression Scale Total 5 09/21/2023 The thought [...] PM EDT documented as of this encounter Progress Notes * Isaías Suggs MD - 2024 3:19 PM EST MATERNAL MEDICINE VISIT Karen Mathur is at 37w0d who presents to [facility] for an ultrasound and follow-up of her high risk . The patient is currently 37 weeks and 0 days gestation with chronic hypertension on no medication and class 2 obesity. She comes in for an evaluation of growth. She is being seen today by Maternal- Medicine for the following reasons: Problem List Items Addressed This Visit Previous gastric bypass affecting , antepartum Chronic hypertension in - Primary Obesity in , antepartum Polyhydramnios in third trimester I reviewed the ultrasound with her. The overall estimated weight is consistent with the 50th percentile for the gestational age and the abdominal circumference is consistent with the 95th percentile for the gestational age. The amniotic fluid volume is elevated at 25 cm, indicating mild polyhydramnios. The fetus is in the vertex presentation and the anatomy that was visualized appearsunremarkable. The biophysical profile is 8/8. CONSIDERATIONS: Polyhydramnios [...] Test Result Information Act, I have discussed withthe patient the significant findings from the diagnostic imaging service performed today. They haveexpressed their understanding and signed the acknowledgement form. Thank you for allowing us to participate in the care of this patient. Please call with any questions. I spent 20 minutes with Ms. Mathur of which greater than 50% was spent in face to face consultationand coordination of care for the above. Isaías Suggs MD 2024 3:19 PM documented in this encounter Miscellaneous Notes * Assessment & Plan Note - Isaías Suggs MD - 2024 3:42 PM EST Associated Problem(s): Polyhydramnios in third trimester I reviewed the ultrasound with her. The [...] Test Result Information Act, I have discussed withthe patient the significant findings from the diagnostic imaging service performed today. They haveexpressed their understanding and signed the acknowledgement form. documented in this encounter Plan of Treatment Upcoming Encounters Date Type Department Care Team (Late st Contact Info) Description 04/02/2024 2:00 PM EST Office Visit Gynecology/Obstetrics [facility] [address] [place] [address] Philly Tatum CRNP [address] [place] [address] 04/09/2024 2:30 PM EST Office Visit Gynecology/Obstetrics [facility] [address] [place] [address] Mo Norwood MD [address] [place] [address] Tawny Driscoll Stress Tests [facility] [address] [place] [address] 04/16/2024 2:30 PM EST Office Visit Gynecology/Obstetrics [facility] [address] [place] [address] Mo Norwood MD [address] [place] [address] Tawny Driscoll Stress Tests [facility] [address] [place] [address] Health Maintenance Due Date Last Done Comments Pneumococcal Vaccine: Pediat rics (0 to 5 Years) and At-Risk Patients (6 to 18 Years and 19+ Years) (1 of 1 - PPSV23) 2004 10/10/1999 HPV (Gardasil) Vaccine (2 - 2-dose series) 12/23/2011 06/22/2011 COVID-19 Vaccine (2023-2 5 season) 2023 Influenza Vaccine (FLU shot) (#1) 2023 11/02/2018, 11/02/2018, 12/12/2017, Additional history exists GFR 03/23/2025 03/23/2024, 1206/2023, 09/21/2023, Additional history exists Pap Smear 09/14/2025 [...] third trimester complication, single or unspecified fetus documented in this encounter Care Teams Makeup Instructor Relationship Specialty Start Date End Date Mone Robin PA-C PCP - General Physician Water Safety Instructor 07/26/21 documented as of this encounter
--- OUTSIDE RECORDS SUMMARY | 2024-04-04 22:21 | External Medical Summary ---
Author Name Unknown Address Unknown Organization [facility] [address] [place] [address] Laboratory Report Ordering Provider Test Date Status JOCELYN GILL 04/01/2024 14:36:00 Final Observation Date Value Abnormality Reference (Units ) Status Color of Urine by Auto 04/01/2024 14:36:00 Yellow Light Yellow, Yellow Final Clarity, Urine 04/01/2024 14:36:00 Clear Clear Final Glucose [Mass/volume] in Urine by Automated test strip 04/01/2024 14:36:00 Negative Negative (mg/dL) Final Bilirubin.total [Presence] in Urine by Automated test strip 04/01/2024 14:36:00 Negative Negative Final Ketones [Mass/volume] in Urine by Automated test strip 04/01/2024 14:36:00 Negative Negative (mg/dL) Final Specific gravity, Urine 04/01/2024 14:36:00 1.015 1.003-1.030 Final Hemoglobin [Presence] in Urine by Automated test strip 04/01/2024 14:36:00 Negative Negative Final pH, Urine 04/01/2024 14:36:00 6.0 5.0, 5.5, 6.0, 6.5, 7.0, 7.5 (units) Final Protein [Mass/volume] in Urine by Automated test strip 04/01/2024 14:36:00 Negative Negative (mg/dL) Final Urobilinogen, Urine 04/01/2024 14:36:00 0.2 0.2, 1.0 (mg/dL) Final Nitrite [Presence] in Urine by Automated test strip 04/01/2024 14:36:00 Negative Negative Final Leukocyte esterase [Presence] in Urine by Automated test strip 04/01/2024 14:36:00 Trace Abnormal Negative Final Performing Location [facility] [address] - [address] [place] [address]
--- OUTSIDE RECORDS SUMMARY | 2024-04-04 22:21 | External Medical Summary | Summary of Care ---
Author Name Unknown Organization [facility] Address [address] [facility] [address] Phone [phone] Care Team Providers Care Compressor Station Operator Name Role Phone Mone Robin PA-C Primary Care Provider [phone] [phone] Reason for Visit * Reason Comments Return Visit Non Stress Test Encounter Details Date Type Department Care Team (Late st Contact Info) Description 04/01/2024 2:30 PM EST Office Visit Gynecology/Obstetric LucioAnnellis Driscoll [address] [place] [address] Philly Tatum CRNP [address] [place] [address] High-risk in third trimester*; Previous gastric bypass [...] with patient that although choroid plexus cysts (STOCKFEED MILLER) can be associated with an increased risk for aneuploidy (particularly Trisomy 18), when choroid plexus cysts (STOCKFEED MILLER) are noted in isolation of any other abnormalities for a woman who is at low risk (age less than 35, normal genetic screening) choroid plexus cysts (STOCKFEED MILLER) are considered a normal variant of and [...] money to get more. Never true 04/01/2024 [place] Depression Scale Answer Date Recorded [place] Depression Scale Total 5 09/21/2023 The thought [...] Driscoll [address] [place] [address] Mo Norwood MD [address] [place] [address] Tawny Driscoll Stress Tests Viridiana [address] [place] [address] 04/16/2024 2:30 PM EST Office Visit Gynecology/Obstetrics Eleno Driscoll [address] [place] [address] Mo Norwood MD [address] [place] [address] Tawny Driscoll Stress Tests [facility] [address] [place] [address] Health Maintenance Due Date Last Done Comments [...] PM EST LAB[facility]ATORY [place] [facility]10 Specific [place], Urine 1.015 1.003 - 1.030 04/01/2024 2:39 [...] Negative 04/01/2024 2:39 PM EST LAB[facility]ATORY [place] Esterase, Urine Trace(A) Negative 04/01/2024 2:39 PM EST LAB[facility] [place] [facility]10 Urine 04/01/2024 2:36 PM EST 04/01/2024 2:39 PM EST Philly ROACH LAB POINT OF CARE TE ST DOCKED DEVICE UNSOLICITED RESULTS Final Result [facility]AT[facility] [place] [facility] [place] [address] documented in this encounter Visit Diagnoses Diagnosis [...] gestation documented in this encounter Care Teams Compressor Station Operator Relationship Specialty Start Date End Date Mone Robin PA-C PCP - General Physician Office Machines Sales Representative 07/26/21 documented as of this encounter
--- OUTSIDE RECORDS SUMMARY | 2024-04-04 22:21 | External Medical Summary ---
Author Name Unknown Address Unknown Organization [id number]:LABORATORY [facility] [place] [facility] - [address] [place] [address] Laboratory Report Ordering Provider Test Date Status ROLLY REN 04/04/2024 13:48:00 Final Observation Date Value Abnormality Reference (Units ) Status Color of Urine by Auto 04/04/2024 13:48:00 Yellow Light Yellow, Yellow Final Clarity, Urine 04/04/2024 13:48:00 Clear Clear Final Glucose [Mass/volume] in Urine by Automated test strip 04/04/2024 13:48:00 Negative Negative (mg/dL) Final Bilirubin.total [Presence] in Urine by Automated test strip 04/04/2024 13:48:00 Negative Negative Final Ketones [Mass/volume] in Urine by Automated test strip 04/04/2024 13:48:00 Negative Negative (mg/dL) Final Specific gravity, Urine 04/04/2024 13:48:00 1.020 1.003-1.030 Final Hemoglobin [Presence] in Urine by Automated test strip 04/04/2024 13:48:00 Negative Negative Final pH, Urine 04/04/2024 13:48:00 7.0 5.0, 5.5, 6.0, 6.5, 7.0, 7.5 (units) Final Protein [Mass/volume] in Urine by Automated test strip 04/04/2024 13:48:00 Negative Negative (mg/dL) Final Urobilinogen, Urine 04/04/2024 13:48:00 0.2 0.2, 1.0 (mg/dL) Final Nitrite [Presence] in Urine by Automated test strip 04/04/2024 13:48:00 Negative Negative Final Leukocyte esterase [Presence] in Urine by Automated test strip 04/04/2024 13:48:00 Negative Negative Final Performing Location LABORATORY [facility] [place] [facility]-[address] - [address] [place] [address]
--- OUTSIDE RECORDS SUMMARY | 2024-04-04 22:22 | External Medical Summary | Summary of Care ---
Author Name Unknown Organization [facility] Address [address] [facility] [place] [address] Phone [phone] Care Team Providers Care Ammunition Assembly Laborer Name Role Phone Mone Robin PA-C Primary Care Provider [phone] [phone] Encounter Details Date Type Department Care Team (Late st Contact Info) Description 03/24/2024 Orders Only Gynecology/Obstetrics [facility] [address] [place] [address] Dario Washington MD [address] [place] [address] Allergies No known active allergiesdocumented as of this encounter (statuses as of 03/24/2024) Medications 28-0.8 MG Oral Tablet Take by mouth. Active lamoTRIgine 25 MG Oral Tablet (LaMICtal) Take 2 Tablets by mouth in the morning and 2 Tablets before bedtime. 4 Active OneTouch Verio w/Device KitIndications:O besity in , antepartum Use as directed. Check blood sugars 4x/day for 2 weeks 1 Kit 4 Active Additional Information Patient not taking.Reported on 03/11/2024 OneTouch Verio In Vitro Strip (Glucose Blood)Indication s:Obesity in , antepartum Use as directed 100 Strip 3 4 Active Additional Information Patient not taking.Reported on 03/11/2024 OneTouch UltraSoft LancetsIndicatio ns:Obesity in , antepartum Use as directed 100 Each 2 4 Active Additional Information Patient not taking.Reported on 03/11/2024 Aspirin 81 MG Oral Tablet ChewableIndicati ons:High-risk in first trimester,Chroni c hypertension in ,Obesit y in , antepartum Take 1 Tablet by mouth in the morning. 100 Tablet 3 4 Active Additional Information Patient not taking.Reported on 03/11/2024 Magnesium 500 MG Oral Capsule Take 1 Capsule by mouth in the morning. Active Sertraline HCl 50 MG Oral Tablet (Zoloft) TAKE ONE-HALF TABLET BY MOUTH ONCE DAILY X7DAYS THEN TAKE ONE TABLET DAILY 4 Active Iron-Vitamin C 65-125 MG Oral Tablet (Vitron C)Indications:An tepartum anemia complicating Take 1 Tablet by mouth in the morning. 30 Tablet 5 4 Active Docusate Sodium 100 MG Oral Capsule (Colace)Indicati ons:Antepartum anemia complicating Take 1 capsule by mouth twice daily as needed. 60 Capsule 5 4 Active Additional Information Patient not taking.Reported on 03/11/2024 Vitamin B-12 1000 MCG Oral Tablet (Cyanocobalamin) Indications:Ante anemia complicating Take 1 Tablet by mouth in the morning. 30 Tablet 5 4 Active metroNIDAZOLE 0.75 % Vaginal Gel (Metrogel-Vagina l) Administer into the vagina every night at bedtime. For 5 days. 70 g 4 Active Additional Information Patient not taking.Reported on 03/11/2024 documented as of this encounter (statuses as of 03/24/2024) Active Problems Problem Noted Date Diagnosed Date Antepartum anemia complicating 024 Choroid plexus cysts, , affecting care of mother, antepartum 12/04/2023 Assessment & Plan (12/04/2023 2:15 PM EDT): Reviewed with patient that although choroid plexus cysts (SENIOR ADMINISTRATIVE SERVICES OFFICER) can be associated with an increased risk for aneuploidy (particularly Trisomy 18), when choroid plexus cysts (SENIOR ADMINISTRATIVE SERVICES OFFICER) are noted in isolation of any other abnormalities for a woman who is at low risk (age less than 35, normal genetic screening) choroid plexus cysts (SENIOR ADMINISTRATIVE SERVICES OFFICER) are considered a normal variant of and [...] 126/70 10/19/23 124/76 10/05/23 131/86 09/21/23 120/68 11/30/23 128/80 BP currently stable without medication. Initiate [...] as of this encounter (statuses as of 03/24/2024) Resolved Problems Problem Noted Date Diagnosed Date [...] as of this encounter (statuses as of 03/24/2024) Immunizations Name Administration Dates Next Due DTaP [...] money to get more. Never true 08/24/2023 [place] Depression Scale Answer Date Recorded [place] Depression Scale Total 5 09/21/2023 The thought [...] 08/24/2023 Does the household have a re lar source of income? (Household - for ages [...] ages 0-17 years) Not on file 08/24/2023 Estimated Date of Delivery Comme nts Yes 04/21/2024 Based on last me nstrual period of 07/16/2023 (Exact Date) Sex and Gender Information Value Date Recorded Sex Assigned at Female 06/10/2023 8:12 PM EDT Legal Sex Female 7:01 AM EST Gender Identity Female 06/10/2023 8:12 PM EDT Sexual Orientation Straight 08/24/2023 8: 07 PM EDT documented as of this encounter Plan of Treatment Upcoming Encounters Date Type Department Care Team (Late st Contact Info) Description 03/26/2024 3:00 PM EST Office Visit Gynecology/Obstetrics Eleno Driscoll [address] [place] [address] Mo Norwood MD [address] [place] [address] 2024 3:30 PM EST Office Visit Import/Export Freight Forwarder Obstetrics Maternal Medicine, [place] [address] [place] [address] Isaías Suggs MD [address] [place] [address] 2024 3:30 PM EST Imaging Radiology [facility] [place], [place] [address] [place] [address] 04/09/2024 2:30 PM EST Office Visit Gynecology/Obstetrics Halellis Driscoll [address] [place] [address] Mo Norwood MD [address] [place] [address] Tawny Driscoll Stress Tests [facility] [address] [place] [address] 04/16/2024 2:30 PM EST Office Visit Gynecology/Obstetrics Eleno Driscoll [address] [place] [address] Mo Norwood MD [address] [place] [address] Tawny Driscoll Stress Tests [facility] [address] [place] [address] Health Maintenance Due Date Last Done Comments Pneumococcal Vaccine: Pediat rics (0 to 5 Years) and At-Risk Patients (6 to 18 Years and 19+ Years) (1 of 1 - PPSV23) 2004 10/10/1999 HPV (Gardasil) Vaccine (2 - 2-dose series) 12/23/2011 06/22/2011 COVID-19 Vaccine (2023-2 5 season) 2023 Influenza Vaccine (FLU shot) (#1) 2023 11/02/2018, 11/02/2018, 12/12/2017, Additional history exists GFR 01/23/2025 03/23/2024, 06/2023, 09/21/2023, Additional history exists Pap [...] Procedure Name Priority Date/Time Associated Diagnosis Comments CHEMISTRY-OUTSIDE Routine 03/23/2024 documented in this encounter Results * (ABNORMAL) CHEMISTRY-OUTSIDE (03/23/2024) Not all results display below - see scan for full detail SEE SCAN-URPC R, CMP, CBCD OUTSIDE LAB (SEE SCANNED REPORT) CREATININE 0.53(A) 0.6 - 1.2 MG/DL OUTSIDE LAB (SEE SCANNED REPORT) EGFR 131.54 OUTSIDE LA B (SEE SCANNED REPORT) POTASSIUM 3.9 3.5 - 5.1 MMOL/L OUTSIDE LAB (SEE SCANNED REPORT) GLUCOSE 73 70 - 99 MG/DL OUTSIDE LAB (SEE SCANNED REPORT) HOURS FASTING OUTSID E LAB (SEE SCANNED REPORT) TRIGLYCERIDES-OUT SIDE LAB OUTSIDE LAB (SEE SCANNED REPORT) CHOLESTEROL-OUTSI DE LAB OUTSIDE LAB (SEE SCANNED REPORT) HDL-OUTSIDE LAB OUTS [place] LAB (SEE SCANNED REPORT) CHOL/HDL RATIO-OUTSIDE LAB OUTSIDE LA B (SEE SCANNED REPORT) LDL (CALCULATED)-OUTS [place] LAB OUTSIDE LAB (SEE SCANNED REPORT) LDL (DIRECT MEASURE)-OUTSIDE LAB OUTSIDE LAB (SEE SCANNED REPORT) HEMOGLOBIN, C4D-GRFHDBZ LAB OUTSIDE LAB (SEE SCANNED REPORT) PHOSPHORUS-OUTSID E LAB OUTSIDE LAB (SEE SCANNED REPORT) PTH-OUTSIDE LAB OUTS [place] LAB (SEE SCANNED REPORT) MICROALBUMIN RATIO-OUTSIDE LAB OUTSIDE LA B (SEE SCANNED REPORT) PROTEIN, UA-OUTSIDE LAB OUTSIDE LAB (SEE SCANNED REPORT) HGB 11.1(A) 12 - 16 G/DL OUTSIDE LAB (SEE SCANNED REPORT) 03/23/2024 Dario Duran MD LABORATORY Final Re sult OUTSIDE LAB (SEE SCANNED REPORT) documented in this encounter Care Teams Ammunition Assembly Laborer Relationship Specialty Start Date End Date Mone Robin PA-C PCP - General Physician Chaser Tar 07/26/21 documented as of this encounter
--- OUTSIDE RECORDS SUMMARY | 2024-04-04 22:22 | External Medical Summary ---
Author Name Unknown Address Unknown Organization [id number]:[facility] [place] [facility] [place] [address] Laboratory Report Ordering Provider Test Date Status ROBERTO OWENS 03/26/2024 15:47:30 Final Observation Date Value Abnormality Reference (Units ) Status Streptococcus agalactiae DNA [Presence] in Specimen by JULIANNE with probe detection 03/26/2024 15:47:30 Positive Abnormal Negative Final Group B Streptococcus detect ed by culture-enhanced PCR (amplified probe). GBS GBSCT - [facility] 03/26/2024 15:47:30 32.8 Final GBS SPCCT - [facility] 03/26/2024 15:47:30 32.7 Final Performing Location [facility] [place] [facility] [address] [facility] [address]
--- OUTSIDE RECORDS SUMMARY | 2024-04-04 22:22 | External Medical Summary | Summary of Care ---
Author Name Unknown Organization [facility] Address [address] [place] [address] Phone [phone] Care Team Providers Care Metal Numerical Tool Programmer Name Role Phone Mone Robin PA-C Primary Care Provider [phone] [phone] Reason for Visit * Reason Comments Return Visit Encounter Details Date Type Department Care Team (Late st Contact Info) Description 03/26/2024 3:00 PM EST Office Visit Gynecology/Obstetric [facility] [address] [place] [address] Mo Norwood MD [address] [place] [address] High-risk in third trimester*; Previous gastric bypass [...] with patient that although choroid plexus cysts (MOUNTER CLARINETS) can be associated with an increased risk for aneuploidy (particularly Trisomy 18), when choroid plexus cysts (MOUNTER CLARINETS) are noted in isolation of any other abnormalities for a woman who is at low risk (age less than 35, normal genetic screening) choroid plexus cysts (MOUNTER CLARINETS) are considered a normal variant of and [...] money to get more. Never true 08/24/2023 [place] Depression Scale Answer Date Recorded [place] Depression Scale Total 5 09/21/2023 The thought [...] Description 2024 3:30 PM EST Office Visit Mutuel Department Manager Obstetrics Maternal Medicine, [address] [address] Isaías Suggs MD [address] [place] [facility] [place] [address] 2024 3:30 PM EST Imaging Radiology [facility] [address] [place] [facility] [place] [address] 04/09/2024 2:30 PM EST [facility] [address] [place] [address] Mo Norwood MD [address] [place] [address] Tawny Driscoll Stress Tests [facility] [address] [place] [address] 04/16/2024 2:30 PM EST [facility] [address] [facility] [place] [address] Mo Norwood MD [address] [place] [address] Tawny Driscoll Stress Tests [facility] [address] [place] [address] Pending Results Name Type Priority Associated Diagnoses [...] fetus documented in this encounter Care Teams Metal Numerical Tool Programmer Relationship Specialty Start Date End Date Mone Robin PA-C PCP - General Physician Dry House Tender 07/26/21 documented as of this encounter
[2024-04-04] MEDS: LACTATED RINGER'S 1,000 ML IV PRN (22:23)
--- OUTSIDE RECORDS SUMMARY | 2024-04-05 01:09 | External Medical Summary | Summary of Care ---
Author Name Unknown Organization [facility] Address [address] [facility] [place] [address] Phone [phone] Care Team Providers Care Field Service Engineer Name Role Phone Mone Robin PA-C Primary Care Provider [phone] [phone] Reason for Visit * Reason Comments Return Visit Encounter Details Date Type Department Care Team (Late st Contact Info) Description 04/04/2024 1:30 PM EST Office Visit Gynecology/Obstetric s LucioAnnellis Driscoll [address] [place] [address] Nita Bradley PA-C [address] [place] [address] High-risk in third trimester*; Previous gastric bypass affecting , antepartum; Chronic hypertension in ; Bipolar disease during in third trimester (HCC); Obesity in , antepartum; Maternal asthma complicating ; Maternal varicella, non-immune; Choroid plexus cyst of fetus affecting care of mother, antepartum, single or unspecified fetus Allergies No known active allergiesdocumented as of this encounter (statuses as of 04/04/2024) Medications 28-0.8 MG Oral Tablet Take by [...] as of this encounter (statuses as of 04/04/2024) Active Problems Problem Noted Date Diagnosed Date [...] with patient that although choroid plexus cysts (CUSTOMS OPENER VERIFIER PACKER) can be associated with an increased risk for aneuploidy (particularly Trisomy 18), when choroid plexus cysts (CUSTOMS OPENER VERIFIER PACKER) are noted in isolation of any other abnormalities for a woman who is at low risk (age less than 35, normal genetic screening) choroid plexus cysts (CUSTOMS OPENER VERIFIER PACKER) are considered a normal variant of and [...] as of this encounter (statuses as of 04/04/2024) Resolved Problems Problem Noted Date Diagnosed Date [...] as of this encounter (statuses as of 04/04/2024) Immunizations Name Administration Dates Next Due DTaP [...] money to get more. Never true 04/01/2024 [place] Depression Scale Answer Date Recorded [place] Depression Scale Total 5 09/21/2023 The thought [...] Sign Reading Time Taken Comments Blood Pressure 158/98 04/04/2024 1:56 PM EST Pulse - - Temperature - - Respiratory Rate - - Oxygen Saturation - - Inhaled Oxygen Concentration - - Weight 121.6 kg (268 lb) 04/04/2024 1:40 PM EST Height - - Body Mass Index 49.02 03/26/2024 2:54 PM EST documented in this encounter Progress Notes * Mila Chavarria CMA - 04/04/2024 1:56 PM EST BP at start of visit 162/104. BP recheck 158/98. Provider calling quality control supervisor doc at [facility]. * Nita Bradley PA-C - 04/04/2024 1:47 PM EST 37w4d Here for acute visit. Seen 3 days ago in office for KIN/NST. Her blood pressure upon presentation to office today was 162/104, recheck 158/98. No proteins in urine. Pt denies any PEC symptoms. Having some arm swelling L>R, better today. Wrist and ankle itchy. She has a small papule appearing rash along wrist and ankle. Bilateral lower extremity edema that is equal bilaterally. Denies VB, LOF, contractions. Baby is active. Reviewed with quality control supervisor provider -- Dr. Reese regarding BP in office. Pt sent to L&D directly to r/o PEC. L&D staff made aware. Patient verbalized understanding and agreeable to presenting directly to hospital. She asked about moving up her 39 week IOL. I advised at this time don't have indication to do so, unless of course she r/o for PEC. Pt verbalized understanding. RTC in 1 week Nita Bradley PA-C * Mila Chavarria CMA - 04/04/2024 1:40 PM EST 37w4d + nausea Feels like baby has dropped, cannot hold urine. Increased swelling in ankles and hands. Left has feels numb. Hands and ankles are itchy. documented in this encounter Plan of Treatment Upcoming Encounters Date Type Department Care Team (Late st Contact Info) Description 04/09/2024 2:30 PM EST Office Visit Gynecology/Obstetrics [facility] [address] [place] [address] Mo Norwood MD [address] [place] [address] Tawny Driscoll Stress Tests [facility] [address] [place] [address] 04/16/2024 2:30 PM EST Office Visit Gynecology/Obstetrics [facility] [address] [place] [address] Mo Norwood MD [address] [place] [address] Tawny Driscoll Stress Tests [facility] [address] [place] [address] Health Maintenance Due Date Last Done Comments Pneumococcal Vaccine: Pediatrics (0 to 5 Years) and At-Risk Patients (6 to 18 Years and 19+ Years) (1 of 1 - PPSV23) 2004 10/10/1999 HPV (Gardasil) Vaccine (2 - 2-dose series) 12/23/2011 06/22/2011 COVID-19 Vaccine ( - 2024-25 season) 2023 Influenza Vaccine (FLU shot) (#1) 2023 11/02/2018, 11/02/2018, 12/12/2017, Additional history exists GFR 03/23/2025 03/23/2024, 12/06/2023, 09/21/2023, Additional history exists Pap Smear 09/14/2025 09/14/2022 DTap/Tdap Vaccines (8 - Td or Tdap) 01/31/2034 02/01/2024, 07/12/2011, 09/30/2003, Additional history exists Hepatitis B Vaccine Completed 1998, 1998, 1998 MENINGOCOCCAL (MENACTRA/MENVEO) Completed 10/12/2015, 10/12/2015, 10/12/2015, Additional history exists Albumin/Creatinine Ratio Discontinued 03/06/2019 Gonorrhea / Chlamydia Screen Discontinued 09/21/2023, 03/06/2019, 11/01/2017 Meningitis B Vaccine (Bexsero/Trumemba) Aged Out No longer eligible based on patient's age to complete this topic documented as of this encounter Medical Devices Not on filedocumented as of this encounter Procedures Procedure Name Priority Date/Time Associated Diagnosis Comments URINALYSIS OBSTETRICS, POINT OF CARE [place] 04/04/2024 1:48 PM EST documented in this encounter Results * URINALYSIS OBSTETRICS, POINT OF CARE (04/04/2024 1:48 PM EST) Color, Urine Yellow Light Yellow, Yellow 04/04/2024 1:50 PM EST LAB[facility]ORY [place] [facility] Clarity, Urine Clear Clear 04/04/2024 1:50 PM EST [facility] [place] [facility] Glucose, Urine Negative Negative mg/dL 04/04/2024 1:50 PM EST [facility] [place] [facility] Bilirubin, Urine Negative Negative 04/04/2024 1:50 PM EST [facility] [place] [facility] Ketone, Urine Negative Negative mg/dL 04/04/2024 1:50 PM EST [facility] [place] [facility] Specific [place], Urine 1.020 1.003 - 1.030 04/04/2024 1:50 PM EST [facility] [place] [facility] Blood, Urine Negative Negative 04/04/2024 1:50 PM EST LAB[facility] [place] [facility] pH, Urine 7.0 5.0, 5.5, 6.0, 6.5, 7.0, 7.5 units 04/04/2024 1:50 PM EST LAB[facility] [place] [facility] Protein, Urine Negative Negative mg/dL 04/04/2024 1:50 PM EST [facility] [place] [facility] Urobilinogen, Urine 0.2 0.2, 1.0 mg/dL 04/04/2024 1:50 PM EST [facility] [place] [facility] Nitrite, Urine Negative Negative 04/04/2024 1:50 PM EST [facility] [place] Esterase, Urine Negative Negative 04/04/2024 1:50 PM EST [facility] [place] [facility] Urine 04/04/2024 1:48 PM EST 04/04/2024 1:50 PM EST Nita Bradley PA-C LAB POINT OF CARE TE ST DOCKED DEVICE UNSOLICITED RESULTS Final Result [facility] [place] [facility] [facility] [place] [address] documented in this encounter Visit Diagnoses Diagnosis [...] fetus documented in this encounter Care Teams Field Service Engineer Relationship Specialty Start Date End Date Mone Robin PA-C PCP - General Physician High Man 07/26/21 documented as of this encounter
[2024-04-05] MEDS: PENICILLIN GK 3 MU in DEXTROSE 5% 100 ML IV PRN (02:20)
[2024-04-05] MEDS: SERTRALINE HCL 50 MG TABLET PO SCH (02:22)
[2024-04-05] MEDS: lamoTRIgine 25 MG TAB PO SCH ×2 (02:23→12:41)
[2024-04-05] MEDS ORDERED: BUTORPHANOL TARTRATE 1 MG/ML VIAL IV PRN (06:12)
--- NOTE | 2024-04-05 07:41 | Anesthesiology Consultation ---
Date of Service April 05, 2024 Assessment & Plan Chart Review Chart Review: Acceptable Risk for Surgery and Patient NOT seen in Pre Admission Testing Consults Requested none ASA ASA3 Proposed Anesthesia Anesthesia Type: Labor Epidural and CSE History Height/Weight Height: 5 ft 2 in Weight: 121.563 kg Allergies Allergy/AdvReac Type Severity Reaction Status Date / Time No Known Allergies Allergy Verified 03/23/24 18:56 Medications Home Medications Medication Instructions Recorded Confirmed Last Taken lamotrigine 25 mg tablet 50 mg PO HS 10/28/23 04/04/24 04/03/24 21:00 lamotrigine 25 mg tablet 50 mg PO QAM 10/28/23 04/04/24 04/04/24 09:00 iron,carbonyl 65 mg-vitamin C 125 1 tab PO DAILY 03/23/24 04/04/24 04/04/24 09:00 mg tablet,delayed release (Vitron-C) sertraline 25 mg tablet 25 mg PO DAILY 03/23/24 04/04/24 04/03/24 21:00 cyanocobalamin (vitamin B-12) 1,000 mcg PO DAILY 04/04/24 04/04/24 04/04/24 08:00 1,000 mcg tablet vit no.133-ferrous 1 tab PO 1XD 04/04/24 04/04/24 04/04/24 08:00 fumarate 28 mg-folic acid 800 mcg tablet () Active Medications Generic Name Dose Route Start Last Admin Trade Name Freq PRN Reason Stop Dose Admin Acetaminophen 1,000 mg 04/04/24 16:44 04/04/24 19:11 Acetaminophen 500 Mg Tab PO 05/04/24 16:43 1,000 mg Q8H PRN Administration Pain Lactated Ringer's 1,000 mls @ 125 mls/hr 04/04/24 16:44 04/05/24 03:27 Lr IV 04/05/24 16:43 0 mls/hr .Q8H PRN Infusion L&D Protocol Protocol Penicillin G Potassium 3 mu/ 106 mls @ 100 mls/hr 04/04/24 19:44 04/05/24 06:16 Dextrose IV 04/14/24 19:43 100 mls/hr Q4H PRN Administration GBS(+) Until Delivery Labetalol HCl 100 mg 04/04/24 19:35 04/05/24 06:19 Labetalol Hcl 100 Mg Tab PO 05/04/24 19:34 100 mg Q8 TOMMIE Administration Lamotrigine 50 mg 04/05/24 01:40 04/05/24 02:23 Lamotrigine 25 Mg Tab PO 05/05/24 01:39 50 mg HS TOMMIE Administration Protocol Sertraline HCl 25 mg 04/05/24 01:40 04/05/24 02:22 Sertraline Hcl 50 Mg Tablet PO 05/05/24 01:39 25 mg HS TOMMIE Administration Past Medical History Medical History Bipolar disorder managed with lamictal History of hypertension patient reports having HTN prior to gastric bypass morbid obesity Anemia s/p gastric bypass Exercise / Class Metabolic Activity II 4-5 Yardwork/Stairs/Walk up [place] Past Family History Family History Other Family history non-contributory Past Surgical History Surgical History History of gastric bypass 2022 Past Anesthesia History No Hx of Anesthesia Complications and No Family Hx of Anesthesia Complications History of PONV No Hx of PONV and No Hx of Motion Sickness Social History Smoking Status: Never smoker Hx Alcohol Use: No Hx Substance Use: No substance use type: does not use Physical Exam Vital Signs Last Vital Signs Temp 36.9 C 04/05/24 03:06 Pulse 80 04/05/24 07:04 Resp 18 04/05/24 03:06 BP 121/62 04/05/24 07:04 Testing Laboratory Results 04/04/24 15:37 04/04/24 15:37 Blood Type A Positive 04/04/24 15:37 Antibody Screen NEGATIVE 04/04/24 15:37
[2024-04-05] MEDS ORDERED: NON-FORMULARY MEDICATION (Iron,Carbonyl-Vitamin C [Vitron-C] 65 mg iron- 125 mg Tablet,Del PO SCH (09:00)
--- NOTE | 2024-04-05 11:28 | Obstetrical Progress Note ---
Date of Service April 05, 2024 Assessment & Plan (1) Elevated blood pressure affecting , antepartum: Plan Induction day #2 for Gestational HTN Pt on labetalol. BP's stable Received Cytotec and Cervidil VE: By Nurse 2/-3 Cervidil removed at 10;)0 Discussed starting Pitocin with pt, pt is agreeable Admission and Anticipated Discharge Date Admission Date: April 04, 2024 Results & Data Vital Signs (Past 12 Hours) Vital Signs Temp Pulse Resp BP 04/05/24 08:58 81 126/77 04/05/24 07:09 18 04/05/24 07:09 37.1 C 18 04/05/24 07:04 80 121/62 04/05/24 06:49 76 122/66 04/05/24 06:34 81 135/74 04/05/24 06:18 78 133/81 04/05/24 04:29 73 140/75 04/05/24 03:06 18 04/05/24 03:06 36.9 C 18 04/05/24 02:51 71 137/75 04/05/24 02:36 70 144/74 H 04/05/24 02:21 70 134/74 04/05/24 02:06 82 108/63 04/05/24 01:51 71 118/67 04/05/24 01:36 66 111/62 04/05/24 01:21 97 H 100/62 04/05/24 01:06 79 117/65 04/05/24 00:51 74 115/60 04/05/24 00:36 64 120/58 L 04/05/24 00:06 83 113/62 04/04/24 23:52 70 04/04/24 23:52 111/58 L 04/04/24 23:36 75 04/04/24 23:36 117/59 L
[2024-04-05] MEDS: FERROUS SULFATE 325 MG TAB PO SCH (11:35)
[2024-04-05] MEDS: PRENATAL VITAMIN 1 TAB PO SCH (11:35)
[2024-04-05] MEDS: OXYTOCIN 30 UNITS/NSS 30 UNITS/500 ML BAG IV PRN (11:45)
[2024-04-05] MEDS: CYANOCOBALAMIN (B-12) 500 MCG TABLET PO SCH (12:40)
[2024-04-05] MEDS: ASCORBIC ACID 500 MG TAB PO SCH (12:41)
--- NOTE | 2024-04-05 17:56 | Obstetrical Progress Note ---
Date of Service April 05, 2024 Assessment & Plan (1) Elevated blood pressure affecting , antepartum: Plan: Pt doing well FHR; CAT1 Ctx ; irreg Pit; 14Mu VE; 3/75/-2 AROM with Amnio hook- clear fluid Admission and Anticipated Discharge Date Admission Date: April 04, 2024 Results & Data Vital Signs (Past 12 Hours) Vital Signs Temp Pulse Resp BP 04/05/24 17:34 82 127/76 04/05/24 15:32 36.9 C 87 133/78 04/05/24 15:00 80 146/72 H 04/05/24 14:00 87 138/86 04/05/24 12:51 85 138/82 04/05/24 11:43 77 135/75 04/05/24 11:40 18 04/05/24 11:40 37.0 C 04/05/24 08:58 81 126/77 04/05/24 07:09 18 04/05/24 07:09 37.1 C 18 04/05/24 07:04 80 121/62 04/05/24 06:49 76 122/66 04/05/24 06:34 81 135/74 04/05/24 06:18 78 133/81
--- NOTE | 2024-04-05 20:26 | Obstetrical Progress Note ---
Date of Service April 05, 2024 Assessment & Plan (1) Elevated blood pressure affecting , antepartum: Plan: Pt doing well called by nurse for poor contractions tracing VE; 3-4/75/-2 Pit; 17mu FSE and IUPC placed w/o difficulty Admission and Anticipated Discharge Date Admission Date: April 04, 2024 Results & Data Vital Signs (Past 12 Hours) Vital Signs Temp Pulse Resp BP 04/05/24 19:12 94 H 141/78 H 04/05/24 17:34 82 127/76 04/05/24 15:32 36.9 C 87 133/78 04/05/24 15:00 80 146/72 H 04/05/24 14:00 87 138/86 04/05/24 12:51 85 138/82 04/05/24 11:43 77 135/75 04/05/24 11:40 18 04/05/24 11:40 37.0 C 18 04/05/24 08:58 81 126/77
[2024-04-05] MEDS ORDERED: SODIUM CHLORIDE 0.9% PF INJ 10 ML VIAL EPI PRN (21:13)
[2024-04-05] MEDS ORDERED: diphenhydrAMINE 50 MG/ML VIAL IV PRN (21:13)
[2024-04-05] MEDS ORDERED: fentaNYL citrate PF 100 MCG/2 ML VIAL EPI PRN (21:13)
[2024-04-05] MEDS ORDERED: BUPIVACAINE 0.25% PF 30 ML VIAL EPI PRN (21:13)
[2024-04-05] MEDS ORDERED: NALOXONE HCL 0.4 MG/1 ML VIAL/CARP IV PRN (21:13)
[2024-04-05] MEDS ORDERED: ROPIVACAINE 0.5% PF 5 MG/ML 20 ML VIAL EPI PRN (21:13)
[2024-04-05] MEDS ORDERED: LIDOCAINE 2% MPF LOCAL 5 ML VIAL EPI PRN (21:13)
[2024-04-05] MEDS ORDERED: NALOXONE HCL 1 MG in SODIUM CHLORIDE 0.9% 1,000 ML IV PRN (21:13)
[2024-04-05] MEDS ORDERED: ePHEDrine sulfate 50 MG/ML AMP IV PRN (21:13)
[2024-04-05] MEDS ORDERED: NALBUPHINE HCL INJ 10 MG/ML AMP IV PRN (21:13)
[2024-04-05] MEDS: LIDOCAINE 2%/EPINEPHRINE 1:200,000 20 ML PF ONE (21:42)
[2024-04-05] MEDS: fentANYL 2 MCG/ML BUPIVacaine 0.125%-NSS 100ML BAG ONE (21:43)
[2024-04-05] MEDS: fentaNYL citrate PF 100 MCG/2 ML VIAL ONE (21:44)
[2024-04-05] MEDS: SODIUM CHLORIDE 0.9% PF INJ 10 ML VIAL ONE (21:44)
[2024-04-05] MEDS: fentaNYL citrate PF 100 MCG/2 ML VIAL EPI STA (21:44)
[2024-04-05] MEDS: SODIUM CHLORIDE 0.9% PF INJ 10 ML VIAL EPI STA (21:44)
[2024-04-05] MEDS: LIDOCAINE 2%/EPINEPHRINE 1:200,000 20 ML PF EPI STA (21:44)
[2024-04-05] MEDS: BUPIVACAINE 0.25% PF 30 ML VIAL ONE (21:44)
[2024-04-05] MEDS: BUPIVACAINE 0.25% PF 30 ML VIAL EPI STA (21:44)
[2024-04-05] MEDS: ePHEDrine sulfate 50 MG/ML AMP ONE (22:06)
[2024-04-06] MEDS ORDERED: LIDOCAINE 2%/EPINEPHRINE 1:200,000 20 ML PF ONE (01:42)
--- NOTE | 2024-04-06 01:52 | Anesthesia Procedure Note ---
Date of Service April 06, 2024 Anesthesia Epidural Re-Dose Vital Signs Temp Pulse Resp BP 36.8 C 93 H 18 142/77 H 04/06/24 01:00 04/06/24 01:41 04/06/24 01:30 04/06/24 01:41 Notes Pain Intensity: 8 Dilatation (cm): 3.5 Effacement (%): 75 Called by nursing to evaluate epidural as the patient is having increased pain. epidural catheter appears at adequate depth The epidural was re-dosed with the following medications (all medications via epidural route) after negative aspiration of the epidural catheter for CSF/HEME. 2% lidocaine with epil After Epidural Re-Dose Mental Status: alert / awake / arousable and participated in evaluation Pain: see Notes below Airway Patency, RR, SpO2: stable & adequate BP & HR: stable & adequate Additional Notes: after bolus, pt continues to report pain and sensation to cold intact. will plan to replace epidural catheter.
[2024-04-06] MEDS: fentANYL 2 MCG/ML BUPIVacaine 0.125%-NSS 100ML BAG EPI PRN (02:45)
--- NOTE | 2024-04-06 09:34 | Obstetrical Progress Note ---
Date of Service April 06, 2024 Assessment & Plan (1) Elevated blood pressure affecting , antepartum: Plan: Doing well VE; 10/100/-1 FHR CAt1 CTXX 2-3 PIT; 28mu Will start pushing when pt has urge to do so Admission and Anticipated Discharge Date Admission Date: April 04, 2024 Results & Data Vital Signs (Past 12 Hours) Vital Signs Temp Pulse Resp BP Pulse Ox 04/06/24 09:28 97 H 97 04/06/24 09:23 102 H 97 04/06/24 09:22 97 H 134/93 04/06/24 09:18 112 H 98 04/06/24 09:15 37.1 C 04/06/24 09:13 104 H 98 04/06/24 09:08 97 H 98 04/06/24 09:07 90 152/89 H 04/06/24 09:03 93 H 97 04/06/24 08:58 92 H 97 04/06/24 08:53 95 H 96 04/06/24 08:52 88 148/92 H 04/06/24 08:48 91 H 96 04/06/24 08:43 95 H 97 04/06/24 08:38 97 04/06/24 08:38 93 H 04/06/24 08:38 88 146/92 H 04/06/24 08:33 93 H 95 04/06/24 08:28 89 97 04/06/24 08:23 93 H 97 04/06/24 08:22 96 H 130/84 04/06/24 08:18 98 H 97 04/06/24 08:13 92 H 96 04/06/24 08:08 96 H 96 04/06/24 08:07 93 H 127/82 04/06/24 08:03 100 H 96 04/06/24 07:58 95 H 96 04/06/24 07:53 97 H 96 04/06/24 07:52 97 H 129/81 04/06/24 07:48 101 H 96 04/06/24 07:43 96 H 97 04/06/24 07:38 104 H 96 04/06/24 07:37 102 H 147/93 H 04/06/24 07:33 107 H 96 04/06/24 07:28 105 H 97 04/06/24 07:23 100 H 96 04/06/24 07:22 99 H 131/78 04/06/24 07:18 101 H 97 04/06/24 07:13 103 H 97 04/06/24 07:09 37.1 C 101 H 20 127/76 97 04/06/24 07:08 109 H 96 04/06/24 07:03 96 H 96 04/06/24 06:58 94 H 96 04/06/24 06:53 94 H 96 04/06/24 06:52 95 H 120/69 04/06/24 06:48 100 H 96 04/06/24 06:43 95 H 96 04/06/24 06:38 98 H 96 04/06/24 06:37 101 H 134/81 04/06/24 06:33 103 H 96 04/06/24 06:28 110 H 96 04/06/24 06:23 97 H 96 04/06/24 06:22 105 H 119/61 04/06/24 06:18 94 H 96 04/06/24 06:13 92 H 95 04/06/24 06:08 91 H 95 04/06/24 06:07 103 H 132/64 04/06/24 06:05 90 94 04/06/24 06:03 94 H 95 04/06/24 05:58 95 H 95 04/06/24 05:53 91 H 95 04/06/24 05:52 89 125/63 04/06/24 05:48 95 H 95 04/06/24 05:43 96 H 96 04/06/24 05:38 89 96 04/06/24 05:37 90 135/65 04/06/24 05:33 100 H 97 04/06/24 05:28 109 H 97 04/06/24 05:23 106 H 97 04/06/24 05:22 97 H 131/72 93 04/06/24 05:18 95 H 96 04/06/24 05:13 96 H 95 04/06/24 05:08 96 H 96 04/06/24 05:07 100 H 139/73 92 04/06/24 05:03 97 H 95 04/06/24 05:00 18 04/06/24 05:00 36.8 C 18 04/06/24 04:58 97 H 95 04/06/24 04:53 99 H 96 04/06/24 04:52 97 H 136/76 04/06/24 04:48 97 H 96 04/06/24 04:43 94 H 96 04/06/24 04:38 96 04/06/24 04:38 91 H 04/06/24 04:38 106 H 142/81 H 04/06/24 04:33 101 H 96 04/06/24 04:28 97 H 98 04/06/24 04:25 100 H 137/89 04/06/24 04:23 101 H 97 04/06/24 04:18 86 96 04/06/24 04:13 90 97 04/06/24 04:08 101 H 96 04/06/24 04:07 100 H 121/64 04/06/24 04:03 85 95 04/06/24 03:58 86 96 04/06/24 03:53 98 04/06/24 03:53 113 H 04/06/24 03:53 100 H 136/85 04/06/24 03:48 96 H 96 04/06/24 03:43 92 H 96 04/06/24 03:38 90 97 04/06/24 03:37 93 H 119/61 04/06/24 03:33 91 H 97 04/06/24 03:28 91 H 97 04/06/24 03:23 87 98 04/06/24 03:22 85 133/69 04/06/24 03:18 86 97 04/06/24 03:13 94 H 98 04/06/24 03:08 91 H 98 04/06/24 03:07 93 H 136/73 04/06/24 03:03 104 H 98 04/06/24 03:00 18 04/06/24 03:00 37.1 C 18 04/06/24 02:58 100 H 98 04/06/24 02:53 89 98 04/06/24 02:51 93 H 132/71 04/06/24 02:48 92 H 96 04/06/24 02:46 89 126/64 04/06/24 02:45 87 126/62 04/06/24 02:44 93 H 123/74 04/06/24 02:43 86 123/63 04/06/24 02:42 88 121/61 04/06/24 02:41 90 123/65 04/06/24 02:40 88 124/64 04/06/24 02:39 92 H 129/69 04/06/24 02:38 85 131/74 04/06/24 02:37 98 H 124/70 04/06/24 02:36 95 H 118/67 04/06/24 02:27 106 H 132/75 04/06/24 02:11 93 H 138/80 04/06/24 01:58 104 H 140/81 04/06/24 01:57 117 H 187/115 H 04/06/24 01:41 93 H 142/77 H 04/06/24 01:30 18 04/06/24 01:30 18 04/06/24 01:27 93 H 142/80 H 04/06/24 01:12 96 H 169/88 H 04/06/24 01:08 93 H 145/83 H 04/06/24 01:00 18 04/06/24 01:00 36.8 C 18 04/06/24 00:56 93 H 134/79 04/06/24 00:41 93 H 132/71 04/06/24 00:27 93 H 135/78 04/06/24 00:11 91 H 134/70 04/05/24 23:56 88 124/69 04/05/24 23:42 89 125/72 04/05/24 23:23 89 132/76 04/05/24 23:16 100 H 126/62 04/05/24 23:12 93 H 136/71 04/05/24 23:06 93 H 120/62 04/05/24 23:02 93 H 118/57 L 04/05/24 22:58 96 H 127/58 L 04/05/24 22:51 83 112/57 L 04/05/24 22:46 86 114/66 04/05/24 22:41 84 123/61 04/05/24 22:37 88 115/68 04/05/24 22:31 86 124/62 04/05/24 22:26 87 127/66 04/05/24 22:21 85 128/64 04/05/24 22:16 87 124/60 04/05/24 22:11 87 127/60 04/05/24 22:06 85 120/58 L 04/05/24 22:01 87 138/67 04/05/24 21:58 98 H 125/64 04/05/24 21:51 100 H 135/65 04/05/24 21:50 110 H 135/64 04/05/24 21:49 114 H 140/65 04/05/24 21:48 108 H 127/60 04/05/24 21:47 100 H 133/60 04/05/24 21:46 109 H 134/61 04/05/24 21:45 110 H 133/62 04/05/24 21:44 100 H 124/61 04/05/24 21:43 110 H 128/63 04/05/24 21:42 115 H 137/64 04/05/24 21:41 113 H 154/79 H 04/05/24 21:40 114 H 168/86 H 04/05/24 21:39 112 H 164/94 H
[2024-04-06] MEDS: TERBUTALINE SULFATE 1 MG/ML VIAL ONE (11:46)
[2024-04-06] MEDS: CITRIC ACID/SODIUM CITRATE 15 ML UDC ONE (11:54)
[2024-04-06] MEDS ORDERED: ETOMIDATE 2 MG/ML 20 ML VIAL IV ONE (12:04)
[2024-04-06] MEDS ORDERED: SUCCINYLCHOLINE CHLORIDE 20 MG/ML 10 ML VIAL IV ONE (12:12)
[2024-04-06] MEDS: ceFAZolin 3000MG 3,000 MG/72.5 ML BAG IV ONE (12:15)
[2024-04-06] MEDS ORDERED: OXYTOCIN 10 UNITS/ML VIAL ONE ×4 (12:18→12:20)
[2024-04-06] MEDS ORDERED: ceFAZolin 330 MG/ML 1 GM VIAL ONE (12:20)
[2024-04-06] MEDS: OXYTOCIN 10 UNITS/ML 10ML VIAL IM ONE (12:20)
[2024-04-06] MEDS: METHYLERGONOVINE MALEATE 0.2 MG/ML AMP IM STA (12:23)
[2024-04-06] MEDS ORDERED: MoRPHine SULFATE PF 1 MG/ML 10 ML AMP/VIAL ONE (12:25)
[2024-04-06] MEDS ORDERED: DROPERIDOL 5 MG/2 ML VIAL IV PRN (12:27)
[2024-04-06] MEDS ORDERED: NALOXONE HCL 0.4 MG/1 ML VIAL/CARP IV PRN (12:27)
[2024-04-06] MEDS ORDERED: diphenhydrAMINE 50 MG/ML VIAL IV PRN (12:27)
[2024-04-06] MEDS ORDERED: NALOXONE HCL 0.08 MG in SYRINGE 1.8 ML IV PRN (12:27)
[2024-04-06] MEDS ORDERED: NALOXONE HCL 1 MG in SODIUM CHLORIDE 0.9% 1,000 ML IV PRN (12:27)
[2024-04-06] MEDS ORDERED: ePHEDrine sulfate 50 MG/ML AMP IV PRN (12:27)
[2024-04-06] MEDS ORDERED: NALBUPHINE HCL INJ 10 MG/ML AMP IV PRN (12:27)
[2024-04-06] MEDS ORDERED: HYDROmorphone INJ 0.5 MG/0.5 ML SYR IV PRN (12:27)
[2024-04-06] MEDS ORDERED: oxyCODONE HCL IR 5 MG TAB (IMMEDIATE RELEASE) PO PRN (12:27)
[2024-04-06] MEDS ORDERED: DC INTRASPINAL MORPHINE SCH (12:30)
[2024-04-06] MEDS ORDERED: NO NARCOTICS OR SEDATIVES SCH (12:30)
[2024-04-06] MEDS ORDERED: ONDANSETRON INJ 2 MG/ML 2 ML VIAL ONE (12:37)
[2024-04-06 12:45] LABS: Base Excess Cord Venous Blood -2.9 mEq/L (-7.7-1.9); Cord Venous Blood HCO3 24 mmol/L (18.4-26.8); Cord Venous Blood PCO2 47 mmHg (30.4-57.2); Cord Venous Blood PO2 33 mmHg (14.1-43.3); Cord Venous Blood pH 7.31 (7.20-7.44); O2 Saturation Cord Venous Bld 72.9 % (<68)
[2024-04-06] MEDS ORDERED: CALCIUM CARBONATE 500 MG CHEWABLE TAB PO PRN (13:23)
[2024-04-06] MEDS ORDERED: MAGNESIUM HYDROXIDE SUSP 30 ML UDC PO PRN (13:23)
[2024-04-06] MEDS ORDERED: BENZOCAINE 20% SPRY 85 APPLN/85 GM CAN EXT PRN (13:23)
[2024-04-06] MEDS ORDERED: HYDROCORTISONE ACETATE 25 MG SUPP PR PRN (13:23)
--- NOTE | 2024-04-06 13:28 | Anesthesiology Progress Note ---
Date of Service April 06, 2024 Anesthesia Post Procedure Vital Signs Vital Signs: Temp Pulse Resp BP Pulse Ox 04/06/24 13:25 98 H 157/79 H 04/06/24 13:23 94 04/06/24 13:23 99 H 04/06/24 13:23 100 H 94 04/06/24 13:22 102 H 142/85 H 04/06/24 11:53 138 H 98 04/06/24 11:52 117 H 163/100 H 04/06/24 11:48 104 H 99 04/06/24 11:43 103 H 97 04/06/24 11:42 103 H 87 L 04/06/24 11:38 105 H 97 04/06/24 11:37 90 160/88 H 04/06/24 11:33 101 H 96 04/06/24 11:28 99 H 96 04/06/24 11:23 95 H 97 04/06/24 11:22 95 H 157/87 H 04/06/24 11:20 89 162/91 H 04/06/24 11:18 109 H 96 04/06/24 11:16 108 H 91 04/06/24 11:13 114 H 94 04/06/24 11:10 119 H 94 04/06/24 11:08 100 H 97 04/06/24 11:07 92 H 165/95 H 04/06/24 11:05 106 H 93 04/06/24 11:03 121 H 93 04/06/24 10:59 121 H 92 04/06/24 10:58 102 H 95 04/06/24 10:53 97 04/06/24 10:53 98 H 04/06/24 10:53 103 H 160/94 H 04/06/24 10:48 101 H 98 04/06/24 10:43 98 H 97 04/06/24 10:38 95 H 98 04/06/24 10:37 100 H 135/78 04/06/24 10:33 92 H 97 04/06/24 10:28 92 H 97 04/06/24 10:23 90 96 04/06/24 10:22 88 142/86 H 04/06/24 10:18 96 H 97 04/06/24 10:13 92 H 97 04/06/24 10:08 95 H 97 04/06/24 10:07 90 148/89 H 04/06/24 10:03 90 97 04/06/24 09:58 94 H 97 04/06/24 09:53 97 04/06/24 09:53 93 H 04/06/24 09:53 97 H 147/83 H 04/06/24 09:48 98 H 97 04/06/24 09:43 97 H 97 04/06/24 09:38 93 H 98 04/06/24 09:37 93 H 153/90 H 04/06/24 09:33 97 H 96 04/06/24 09:28 97 H 97 04/06/24 09:23 102 H 97 04/06/24 09:22 97 H 134/93 04/06/24 09:18 112 H 98 04/06/24 09:15 37.1 C 04/06/24 09:13 104 H 98 04/06/24 09:08 97 H 98 04/06/24 09:07 90 152/89 H 04/06/24 09:03 93 H 97 04/06/24 08:58 92 H 97 04/06/24 08:53 95 H 96 04/06/24 08:52 88 148/92 H 04/06/24 08:48 91 H 96 04/06/24 08:43 95 H 97 04/06/24 08:38 97 04/06/24 08:38 93 H 04/06/24 08:38 88 146/92 H 04/06/24 08:33 93 H 95 04/06/24 08:28 89 97 04/06/24 08:23 93 H 97 04/06/24 08:22 96 H 130/84 04/06/24 08:18 98 H 97 04/06/24 08:13 92 H 96 04/06/24 08:08 96 H 96 04/06/24 08:07 93 H 127/82 04/06/24 08:03 100 H 96 04/06/24 07:58 95 H 96 04/06/24 07:53 97 H 96 04/06/24 07:52 97 H 129/81 04/06/24 07:48 101 H 96 04/06/24 07:43 96 H 97 04/06/24 07:38 104 H 96 04/06/24 07:37 102 H 147/93 H 04/06/24 07:33 107 H 96 04/06/24 07:28 105 H 97 04/06/24 07:23 100 H 96 04/06/24 07:22 99 H 131/78 04/06/24 07:18 101 H 97 04/06/24 07:13 103 H 97 04/06/24 07:09 37.1 C 101 H 20 127/76 97 04/06/24 07:08 109 H 96 04/06/24 07:03 96 H 96 04/06/24 06:58 94 H 96 04/06/24 06:53 94 H 96 04/06/24 06:52 95 H 120/69 04/06/24 06:48 100 H 96 04/06/24 06:43 95 H 96 04/06/24 06:38 98 H 96 04/06/24 06:37 101 H 134/81 04/06/24 06:33 103 H 96 04/06/24 06:28 110 H 96 04/06/24 06:23 97 H 96 04/06/24 06:22 105 H 119/61 04/06/24 06:18 94 H 96 04/06/24 06:13 92 H 95 04/06/24 06:08 91 H 95 04/06/24 06:07 103 H 132/64 04/06/24 06:05 90 94 04/06/24 06:03 94 H 95 04/06/24 05:58 95 H 95 04/06/24 05:53 91 H 95 04/06/24 05:52 89 125/63 04/06/24 05:48 95 H 95 04/06/24 05:43 96 H 96 04/06/24 05:38 89 96 04/06/24 05:37 90 135/65 04/06/24 05:33 100 H 97 04/06/24 05:28 109 H 97 04/06/24 05:23 106 H 97 04/06/24 05:22 97 H 131/72 93 04/06/24 05:18 95 H 96 04/06/24 05:13 96 H 95 04/06/24 05:08 96 H 96 04/06/24 05:07 100 H 139/73 92 04/06/24 05:03 97 H 95 04/06/24 05:00 18 04/06/24 05:00 36.8 C 18 04/06/24 04:58 97 H 95 04/06/24 04:53 99 H 96 04/06/24 04:52 97 H 136/76 04/06/24 04:48 97 H 96 04/06/24 04:43 94 H 96 04/06/24 04:38 96 04/06/24 04:38 91 H 04/06/24 04:38 106 H 142/81 H 04/06/24 04:33 101 H 96 04/06/24 04:28 97 H 98 04/06/24 04:25 100 H 137/89 04/06/24 04:23 101 H 97 04/06/24 04:18 86 96 04/06/24 04:13 90 97 04/06/24 04:08 101 H 96 04/06/24 04:07 100 H 121/64 04/06/24 04:03 85 95 04/06/24 03:58 86 96 04/06/24 03:53 98 04/06/24 03:53 113 H 04/06/24 03:53 100 H 136/85 04/06/24 03:48 96 H 96 04/06/24 03:43 92 H 96 04/06/24 03:38 90 97 04/06/24 03:37 93 H 119/61 04/06/24 03:33 91 H 97 04/06/24 03:28 91 H 97 04/06/24 03:23 87 98 04/06/24 03:22 85 133/69 04/06/24 03:18 86 97 04/06/24 03:13 94 H 98 04/06/24 03:08 91 H 98 04/06/24 03:07 93 H 136/73 04/06/24 03:03 104 H 98 04/06/24 03:00 18 04/06/24 03:00 37.1 C 18 04/06/24 02:58 100 H 98 04/06/24 02:53 89 98 04/06/24 02:51 93 H 132/71 04/06/24 02:48 92 H 96 04/06/24 02:46 89 126/64 04/06/24 02:45 87 126/62 04/06/24 02:44 93 H 123/74 04/06/24 02:43 86 123/63 04/06/24 02:42 88 121/61 02/16/25 02:41 90 123/65 04/06/24 02:40 88 124/64 04/06/24 02:39 92 H 129/69 04/06/24 02:38 85 131/74 04/06/24 02:37 98 H 124/70 04/06/24 02:36 95 H 118/67 04/06/24 02:27 106 H 132/75 04/06/24 02:11 93 H 138/80 04/06/24 01:58 104 H 140/81 04/06/24 01:57 117 H 187/115 H 04/06/24 01:41 93 H 142/77 H 04/06/24 01:30 18 04/06/24 01:30 18 04/06/24 01:27 93 H 142/80 H 04/06/24 01:12 96 H 169/88 H 04/06/24 01:08 93 H 145/83 H 04/06/24 01:00 18 04/06/24 01:00 36.8 C 18 04/06/24 00:56 93 H 134/79 04/06/24 00:41 93 H 132/71 04/06/24 00:27 93 H 135/78 04/06/24 00:11 91 H 134/70 04/05/24 23:56 88 124/69 04/05/24 23:42 89 125/72 04/05/24 23:23 89 132/76 04/05/24 23:16 100 H 126/62 04/05/24 23:12 93 H 136/71 04/05/24 23:06 93 H 120/62 04/05/24 23:02 93 H 118/57 L 04/05/24 22:58 96 H 127/58 L 04/05/24 22:51 83 112/57 L 04/05/24 22:46 86 114/66 04/05/24 22:41 84 123/61 04/05/24 22:37 88 115/68 04/05/24 22:31 86 124/62 04/05/24 22:26 87 127/66 04/05/24 22:21 85 128/64 04/05/24 22:16 87 124/60 04/05/24 22:11 87 127/60 04/05/24 22:06 85 120/58 L 04/05/24 22:01 87 138/67 04/05/24 21:58 98 H 125/64 04/05/24 21:51 100 H 135/65 04/05/24 21:50 110 H 135/64 04/05/24 21:49 114 H 140/65 04/05/24 21:48 108 H 127/60 04/05/24 21:47 100 H 133/60 04/05/24 21:46 109 H 134/61 04/05/24 21:45 110 H 133/62 04/05/24 21:44 100 H 124/61 04/05/24 21:43 110 H 128/63 04/05/24 21:42 115 H 137/64 04/05/24 21:41 113 H 154/79 H 04/05/24 21:40 114 H 168/86 H 04/05/24 21:39 112 H 164/94 H 04/05/24 21:28 92 H 171/102 H 04/05/24 21:00 18 04/05/24 21:00 36.8 C 18 04/05/24 19:12 94 H 141/78 H 04/05/24 19:10 37.1 C 18 04/05/24 19:10 18 04/05/24 19:10 37.1 C 18 04/05/24 17:34 82 127/76 04/05/24 15:32 36.9 C 87 133/78 04/05/24 15:00 80 146/72 H 04/05/24 14:00 87 138/86 Pain Intensity Back: Pain Intensity: 3 Abdomen: Pain Intensity: 5 Lower Medial Sacrum: Pain Intensity: 5 Transfer of Care Handoff Completed per policy Notes Mental Status: alert / awake / arousable Patient Amnestic to Procedure: Yes Nausea / Vomiting: adequately controlled Pain: adequately controlled Airway Patency, RR, SpO2: stable & adequate BP & HR: stable & adequate Hydration State: stable & adequate Anesthetic Complications: no major complications apparent and Pt Satisfied with anesthetic care Notes: epidural removed with tip i tact
[2024-04-06] MEDS: LACTATED RINGER'S 1,000 ML IV SCH ×2 (13:30→18:05)
--- NOTE | 2024-04-06 13:30 | Operative Report ---
Post Operative Report Pre & Post Diagnosis Operation Date: 04/06/24 12:30 Pre-Op Diagnosis: Bradycardia Post-Op Diagnosis: Bradycardia I identified the patient and participated in the time-out.: Yes Procedure Operation Date: 04/06/24 12:30 Actual Procedures p Section in LD delivery of live female child at 1219 - Mo Norwood MD Surgeon Mo Norwood MD [employer] Machine Operator dr martinez Estimated Blood Loss 1,037 Findings Consistent with Post-Op Diagnosis Infant in cephalic presentation nuchal cord x 1 uterus adnexa stenosis of the abdomen is unremarkable. Fluids IVF; 800ml Urine; 100ml QBL; 1037ml Specimens placenta and cord gasses Drains none Anesthesia Type General Complications none Indications bradycardia during third phase (pushing phase) of labor Description of Procedure This was a STAT c/section Patient brought to the operating room Prepped and draped in normal sterile fashion in dorsal supine position with a leftward tilt. Time out is performed. Patient is identified by name and date of . Allergy and antibiotics and reviewed and confirmed. Skin check is performed to see if anesthesia is adequate A Pfannenstiel incision is made and carried out to the fascia with a scalpel. Fascia is incised in the midline extended laterally on both sides with Schmidt scissors. Deandre's were used to grab the superior part of the fascial incision and the rectus abdominis muscle dissected with Schmidt scissors.. Same procedure was performed on the lower section of the fascia. The rectus muscle is then in the midline and the peritoneum identified, tented up and entered sharply with the Metzenbaum scissors. The peritoneal incision was then extended superiorly and inferiorly with good visualization of the bladder. An Troy retractor was then inserted to provide better visualization and retraction. Vesicouterine peritoneum was identified, grasped with pickups and entered sharply with Metzenbaum scissors. The incision was then extended laterally and the bladder flap created with Metzenbaum scissors. The lower uterine segment incision was performed in a transverse fashion with a scalpel. Uterine incision was then extended laterally with the bandage scissors. Amniotomy is already performed The infant's head was delivered atraumatically. There is 1 nuchal cord which is easily reduced Nose and mouth suctioned with the bulb suction. cord is then clamped and cut and is handed over to the waiting pediatric team. Cord blood and gases obtained The placenta is then removed manually the uterus is exteriorized and cleared of all clots and debris. Uterine incision it repaired with 0-Vicryl in a locking fashion. A second layer of 0-Vicryl is used to obtain excellent hemostasis. Uterus is placed back into the abdominal cavity. The bladder flap was repaired in a running fashion with plain suture. Copious amount of irrigation was used to irrigate the abdomen. Gutters were cleared of all clots and debris . Hemostasis was obtained. The [place] retractor is removed as well as sponges or instruments in the abdomen. The peritoneum was identified and closed in a running fashion using plain suture. The rectus abdominis muscle was examined to ensure there no bleeding. The rectus abdominis muscle was approximated loosely using plain suture in a [id number] manner. Once again hemostasis is confirmed. The fascia was grasped with [place] and closed in a running fashion. Both fascial layers are closed together using 0-PDS suture. Subcutaneous space is irrigated and hemostasis was confirmed. Subcutaneous space is approximated with plain suture. Skin is closed with rui. The patient tolerated procedure well sponge just labs needle counts were correct x2 patient is sent to recovery in stable condition [employer] Cutting Machine Operator was necessary for retraction and manipulation of instruments in order to provide for a safe operation I attest to the content of the Intraoperative Record and any orders documented therein. Any exceptions are noted below.
[2024-04-06] MEDS: ACETAMINOPHEN 325 MG TAB PO SCH ×2 (13:46)
[2024-04-06] MEDS: IBUPROFEN 600 MG TAB PO ONE (13:46)
[2024-04-06] MEDS: hydrALAZINE HCL 20 MG/ML VIAL ONE (14:28)
--- NOTE | 2024-04-06 14:38 | Obstetrical Progress Note ---
Date of Service April 06, 2024 Assessment & Plan (1) Elevated blood pressure affecting , antepartum: Plan: Late Entry Note Reason; Pt was taken to [place] for STAt c/sec Patient was fully dilated and was pushing. During her pushing, heart rate was going in the low 80s. Pitocin was DC'd. On vaginal exam she was fully dilated +1 station. Serial position changes were performed patient continued to have significant decelerations with pushing. Decision was therefore made to perform stat section of this was given breath and she was taken to the operating room and a stat section performed. Details of the surgery is in the operative note. Admission and Anticipated Discharge Date Admission Date: April 04, 2024 Results & Data Vital Signs (Past 12 Hours) Vital Signs Temp Pulse Resp BP Pulse Ox 04/06/24 14:33 98 H 95 04/06/24 14:28 94 H 95 04/06/24 14:25 93 H 166/102 H 04/06/24 14:23 95 H 95 04/06/24 14:20 96 H 179/96 H 04/06/24 14:18 96 04/06/24 14:18 103 H 04/06/24 14:18 99 H 174/82 H 04/06/24 14:15 91 H 170/100 H 04/06/24 14:13 102 H 94 04/06/24 14:08 100 H 96 04/06/24 14:06 88 166/96 H 04/06/24 14:05 91 H 173/99 H 04/06/24 14:03 95 H 94 04/06/24 13:58 94 H 95 04/06/24 13:55 89 154/93 H 04/06/24 13:53 94 H 96 04/06/24 13:49 92 H 164/99 H 04/06/24 13:48 96 H 95 04/06/24 13:45 96 H 170/96 H 04/06/24 13:43 95 H 95 04/06/24 13:38 99 H 164/90 H 96 04/06/24 13:33 97 H 94 04/06/24 13:28 96 H 93 04/06/24 13:25 98 H 157/79 H 04/06/24 13:23 94 04/06/24 13:23 99 H 04/06/24 13:23 100 H 94 04/06/24 13:22 102 H 142/85 H 04/06/24 11:53 138 H 98 04/06/24 11:52 117 H 163/100 H 04/06/24 11:48 104 H 99 04/06/24 11:43 103 H 97 04/06/24 11:42 103 H 87 L 04/06/24 11:38 105 H 97 04/06/24 11:37 90 160/88 H 04/06/24 11:33 101 H 96 04/06/24 11:28 99 H 96 04/06/24 11:23 95 H 97 04/06/24 11:22 95 H 157/87 H 04/06/24 11:20 89 162/91 H 04/06/24 11:18 109 H 96 04/06/24 11:16 108 H 91 04/06/24 11:13 114 H 94 04/06/24 11:10 119 H 94 04/06/24 11:08 100 H 97 04/06/24 11:07 92 H 165/95 H 04/06/24 11:05 106 H 93 04/06/24 11:03 121 H 93 04/06/24 10:59 121 H 92 04/06/24 10:58 102 H 95 04/06/24 10:53 97 04/06/24 10:53 98 H 04/06/24 10:53 103 H 160/94 H 04/06/24 10:48 101 H 98 04/06/24 10:43 98 H 97 04/06/24 10:38 95 H 98 04/06/24 10:37 100 H 135/78 04/06/24 10:33 92 H 97 04/06/24 10:28 92 H 97 04/06/24 10:23 90 96 04/06/24 10:22 88 142/86 H 04/06/24 10:18 96 H 97 04/06/24 10:13 92 H 97 04/06/24 10:08 95 H 97 04/06/24 10:07 90 148/89 H 04/06/24 10:03 90 97 04/06/24 09:58 94 H 97 04/06/24 09:53 97 04/06/24 09:53 93 H 04/06/24 09:53 97 H 147/83 H 04/06/24 09:48 98 H 97 04/06/24 09:43 97 H 97 04/06/24 09:38 93 H 98 04/06/24 09:37 93 H 153/90 H 04/06/24 09:33 97 H 96 04/06/24 09:28 97 H 97 04/06/24 09:23 102 H 97 04/06/24 09:22 97 H 134/93 04/06/24 09:18 112 H 98 04/06/24 09:15 37.1 C 04/06/24 09:13 104 H 98 04/06/24 09:08 97 H 98 04/06/24 09:07 90 152/89 H 04/06/24 09:03 93 H 97 04/06/24 08:58 92 H 97 04/06/24 08:53 95 H 96 04/06/24 08:52 88 148/92 H 04/06/24 08:48 91 H 96 04/06/24 08:43 95 H 97 04/06/24 08:38 97 04/06/24 08:38 93 H 04/06/24 08:38 88 146/92 H 04/06/24 08:33 93 H 95 04/06/24 08:28 89 97 04/06/24 08:23 93 H 97 04/06/24 08:22 96 H 130/84 04/06/24 08:18 98 H 97 04/06/24 08:13 92 H 96 04/06/24 08:08 96 H 96 04/06/24 08:07 93 H 127/82 04/06/24 08:03 100 H 96 04/06/24 07:58 95 H 96 04/06/24 07:53 97 H 96 04/06/24 07:52 97 H 129/81 04/06/24 07:48 101 H 96 04/06/24 07:43 96 H 97 04/06/24 07:38 104 H 96 04/06/24 07:37 102 H 147/93 H 04/06/24 07:33 107 H 96 04/06/24 07:28 105 H 97 04/06/24 07:23 100 H 96 04/06/24 07:22 99 H 131/78 04/06/24 07:18 101 H 97 04/06/24 07:13 103 H 97 04/06/24 07:09 37.1 C 101 H 20 127/76 97 04/06/24 07:08 109 H 96 04/06/24 07:03 96 H 96 04/06/24 06:58 94 H 96 04/06/24 06:53 94 H 96 04/06/24 06:52 95 H 120/69 04/06/24 06:48 100 H 96 04/06/24 06:43 95 H 96 04/06/24 06:38 98 H 96 04/06/24 06:37 101 H 134/81 04/06/24 06:33 103 H 96 04/06/24 06:28 110 H 96 04/06/24 06:23 97 H 96 04/06/24 06:22 105 H 119/61 04/06/24 06:18 94 H 96 04/06/24 06:13 92 H 95 04/06/24 06:08 91 H 95 04/06/24 06:07 103 H 132/64 04/06/24 06:05 90 94 04/06/24 06:03 94 H 95 04/06/24 05:58 95 H 95 04/06/24 05:53 91 H 95 04/06/24 05:52 89 125/63 04/06/24 05:48 95 H 95 04/06/24 05:43 96 H 96 04/06/24 05:38 89 96 04/06/24 05:37 90 135/65 04/06/24 05:33 100 H 97 04/06/24 05:28 109 H 97 04/06/24 05:23 106 H 97 04/06/24 05:22 97 H 131/72 93 04/06/24 05:18 95 H 96 04/06/24 05:13 96 H 95 04/06/24 05:08 96 H 96 04/06/24 05:07 100 H 139/73 92 04/06/24 05:03 97 H 95 04/06/24 05:00 18 04/06/24 05:00 36.8 C 18 04/06/24 04:58 97 H 95 04/06/24 04:53 99 H 96 04/06/24 04:52 97 H 136/76 04/06/24 04:48 97 H 96 04/06/24 04:43 94 H 96 04/06/24 04:38 96 04/06/24 04:38 91 H 04/06/24 04:38 106 H 142/81 H 04/06/24 04:33 101 H 96 04/06/24 04:28 97 H 98 04/06/24 04:25 100 H 137/89 04/06/24 04:23 101 H 97 04/06/24 04:18 86 96 04/06/24 04:13 90 97 04/06/24 04:08 101 H 96 04/06/24 04:07 100 H 121/64 04/06/24 04:03 85 95 04/06/24 03:58 86 96 04/06/24 03:53 98 04/06/24 03:53 113 H 04/06/24 03:53 100 H 136/85 04/06/24 03:48 96 H 96 04/06/24 03:43 92 H 96 04/06/24 03:38 90 97 04/06/24 03:37 93 H 119/61 04/06/24 03:33 91 H 97 04/06/24 03:28 91 H 97 04/06/24 03:23 87 98 04/06/24 03:22 85 133/69 04/06/24 03:18 86 97 04/06/24 03:13 94 H 98 04/06/24 03:08 91 H 98 04/06/24 03:07 93 H 136/73 04/06/24 03:03 104 H 98 04/06/24 03:00 18 04/06/24 03:00 37.1 C 18 04/06/24 02:58 100 H 98 04/06/24 02:53 89 98 04/06/24 02:51 93 H 132/71 04/06/24 02:48 92 H 96 04/06/24 02:46 89 126/64 04/06/24 02:45 87 126/62 04/06/24 02:44 93 H 123/74 04/06/24 02:43 86 123/63 04/06/24 02:42 88 121/61 04/06/24 02:41 90 123/65 04/06/24 02:40 88 124/64 04/06/24 02:39 92 H 129/69 04/06/24 02:38 85 131/74 04/06/24 02:37 98 H 124/70
[2024-04-06] MEDS: hydrALAZINE HCL 20 MG/ML VIAL IV ONE (14:39)
[2024-04-06] MEDS: ACETAMINOPHEN 325 MG TAB ONE (14:44)
[2024-04-06] MEDS: OXYTOCIN 20 UNITS/LR 1,002 ML IV SCH (15:40)
[2024-04-06] MEDS ORDERED: ACETAMINOPHEN 325 MG TAB PO SCH (16:30)
[2024-04-06] MEDS: DIPHTHER/TETAN/PERTUS Vaccine (Tdap, Adol/Adult) 0.5mL IM ONE (18:06)
[2024-04-06] MEDS: MoRPHine SULFATE PF 1 MG/ML 10 ML AMP/VIAL EPI ONE (18:06)
[2024-04-06] MEDS: SIMETHICONE 80 MG CHEW PO SCH (18:06)
[2024-04-06] MEDS: SODIUM CHLORIDE 0.9% 1,000 ML IV SCH (18:07)
[2024-04-06] MEDS: DOCUSATE SODIUM 100 MG CAP PO SCH (21:22)
[2024-04-07 06:11] LABS: Basophils # (auto) 0.03 K/uL (0.00-0.20); Basophils % (auto) 0.2 %; Eosinophils # (auto) 0.02 K/uL (0.00-0.50); Eosinophils % (auto) 0.1 %; Hematocrit (blood only) 29.5 % (37.0-47.0); Hemoglobin 9.7 g/dl (12.0-16.0); Immature Granulocytes # (auto) 0.06 K/uL (0.01-0.20); Immature Granulocytes % (auto) 0.4 %; Lymphocytes # (auto) 1.58 K/uL (1.20-3.40); Lymphocytes % (auto) 10.2 %; Mean Corpuscular Hemoglobin 27.9 pg (25.0-34.0); Mean Corpuscular Hgb Conc 32.9 g/dL (32.0-36.0); Mean Corpuscular Volume 84.8 fL (80.0-100.0); Mean Platelet Volume 9.6 fL (9.4-12.4); Monocytes # (auto) 1.07 K/uL (0.11-0.59); Monocytes % (auto) 6.9 %; Neutrophils # (auto) 12.68 K/uL (1.40-6.50); Neutrophils % (auto) 82.2 %; Platelet Count 263 K/uL (130-400); RDW Coefficient of Variation 13.5 % (11.5-14.5); RDW Standard Deviation 41.4 fL (36.4-46.3); Red Blood Count 3.48 M/uL (4.20-5.40); White Blood Count 15.44 K/ul (4.8-10.8)
[2024-04-07] MEDS ORDERED: oxyCODONE HCL IR 5 MG TAB (IMMEDIATE RELEASE) PO PRN (06:27)
[2024-04-07] MEDS ORDERED: diphenhydrAMINE Capsule 25 MG CAP PO PRN (06:27)
[2024-04-07] MEDS ORDERED: ONDANSETRON INJ 2 MG/ML 2 ML VIAL IV PRN (06:27)
[2024-04-07] MEDS ORDERED: PROMETHAZINE 12.5 MG/50.5 ML BAG IV PRN (06:27)
[2024-04-07] MEDS ORDERED: HYDROmorphone INJ 0.5 MG/0.5 ML SYR IV PRN (06:27)
[2024-04-07] MEDS ORDERED: diphenhydrAMINE 50 MG/ML VIAL IV PRN (06:27)
[2024-04-07] MEDS ORDERED: FERROUS SULFATE 325 MG TAB PO SCH (08:00)
[2024-04-07] MEDS: PRENATAL VITAMIN 1 TAB PO SCH (08:04)
[2024-04-07] MEDS: traMADol HCL 50 MG TABLET PO SCH (08:04)
--- NOTE | 2024-04-07 09:52 | Obstetrical Progress Note ---
Date of Service April 07, 2024 Subjective Ambulation: ambulating normally Voiding: no voiding problems Passing Gas:: No Diet Tolerance:: regular diet Feeding Type:: bottle feeding Current Pain Level(1-10): 3 doing well Physical Exam Constitutional WD/WN, vitals as above Gastrointestinal (Abdomen) Inspection/Auscultation: abdomen normal to inspection abdomen soft and non-tender. incision c/d/i Musculoskeletal Extremities: extremities normal to inspection Skin no rashes, warm and dry Neurologic patellar DTR's 2+ bilat, sensation intact Psychiatric A+Ox3, euthymic affect Results & Data Vital Signs (Past 12 Hours) Vital Signs Temp Pulse Resp BP Pulse Ox O2 Del Method 04/07/24 05:00 36.6 C 85 18 122/80 95 Room Air 04/07/24 05:00 18 95 04/07/24 04:00 18 97 04/07/24 03:00 18 93 04/07/24 02:00 18 94 04/07/24 01:00 36.9 C 88 18 110/68 93 Room Air 04/07/24 01:00 18 94 04/07/24 00:00 16 94 04/06/24 23:00 18 94 04/06/24 22:00 20 94 Laboratory Results 04/04/24 04/04/24 04/06/24 15:15 15:37 12:19 WBC 10.33 RBC 3.98 L Hgb 11.1 L Hct 33.8 L MCV 84.9 MCH 27.9 MCHC 32.8 RDW Std Deviation 39.9 RDW Coeff of Yaritza 13.0 Plt Count 304 MPV 9.7 Immature Gran % (Auto) 0.3 Neut % (Auto) 75.1 Lymph % (Auto) 18.0 [place] % (Auto) 5.4 Eos % (Auto) 1.0 Baso % (Auto) 0.2 Neut # (Auto) 7.76 H Lymph # (Auto) 1.86 [place] # (Auto) 0.56 Eos # (Auto) 0.10 Baso # (Auto) 0.02 Immature Gran # (Auto) 0.03 Cord ABG pH TNP Cord ABG pCO2 TNP Cord ABG pO2 TNP Cord ABG HCO3 TNP Cord ABG Base Excess TNP Cord ABG O2 Sat TNP Cord VBG pH 7.31 Cord VBG pCO2 47 Cord VBG pO2 33 Cord VBG HCO3 24 Cord VBG Base Excess -2.9 Cord VBG O2 Sat 72.9 H Blood Gas Comments TNP Sodium 136 Potassium 3.9 Chloride 107 Carbon Dioxide 22 Anion Gap 7 BUN 7 Creatinine 0.57 L Est Cr Clr Drug Dosing 185.8 eGFR 128.45 BUN/Creatinine Ratio 12.3 Glucose 100 H Calcium 8.1 L Total Bilirubin 0.3 Direct Bilirubin 0.1 AST 19 ALT 15 Alkaline Phosphatase 182 H Total Protein 6.1 Albumin 3.0 L Globulin 3.1 Albumin/Globulin Ratio 1.0 Ur Random Creatinine 27.3 U Random Total Protein 5.3 Protein/Creatinin Ratio 0.2 Treponema pallidum Ab Negative Blood Type A Positive Antibody Screen NEGATIVE 04/06/24 04/07/24 12:19 05:40 WBC 15.44 H RBC 3.48 L Hgb 9.7 L Hct 29.5 L MCV 84.8 MCH 27.9 MCHC 32.9 RDW Std Deviation 41.4 RDW Coeff of Yaritza 13.5 Plt Count 263 MPV 9.6 Immature Gran % (Auto) 0.4 Neut % (Auto) 82.2 Lymph % (Auto) 10.2 [place] % (Auto) 6.9 Eos % (Auto) 0.1 Baso % (Auto) 0.2 Neut # (Auto) 12.68 H Lymph # (Auto) 1.58 [place] # (Auto) 1.07 H Eos # (Auto) 0.02 Baso # (Auto) 0.03 Immature Gran # (Auto) 0.06 Cord ABG pH Cord ABG pCO2 Cord ABG pO2 Cord ABG HCO3 Cord ABG Base Excess Cord ABG O2 Sat Cord VBG pH Cord VBG pCO2 Cord VBG pO2 Cord VBG HCO3 Cord VBG Base Excess Cord VBG O2 Sat Blood Gas Comments [place] Sodium Potassium Chloride Carbon Dioxide Anion Gap BUN Creatinine Est Cr Clr Drug Dosing eGFR BUN/Creatinine Ratio Glucose Calcium Total Bilirubin Direct Bilirubin AST ALT Alkaline Phosphatase Total Protein Albumin Globulin Albumin/Globulin Ratio Ur Random Creatinine U Random Total Protein Protein/Creatinin Ratio Treponema pallidum Ab Blood Type Antibody Screen
[2024-04-07] MEDS ORDERED: Nursing to Pharmacy Communication SCH ×2 (10:15→11:00)
[2024-04-07] MEDS: bisacodyL 5 MG TABEC PO SCH (19:41)
[2024-04-07 20:24] VITALS: RESP 18
[2024-04-08 06:29] LABS: Hemoglobin 9.1 g/dl (12.0-16.0)
[2024-04-08] MEDS ORDERED: ACETAMINOPHEN 325 MG TAB PO PRN ×2 (08:00→19:24)
[2024-04-08] MEDS: SENNA 8.6 MG TAB PO PRN (08:09)
--- NOTE | 2024-04-08 09:22 | Obstetrical Progress Note ---
Date of Service April 08, 2024 Assessment & Plan Admission and Anticipated Discharge Date Admission Date: April 04, 2024 Subjective abdomen soft and non tender passing gas incision is clean and dry no calf tenderness ambulating well vaginal bleeding scant hgb 9.1 patient on labetalol 100 mg tid Results & Data Vital Signs (Past 12 Hours) Vital Signs Temp Pulse Resp BP Pulse Ox O2 Del Method 04/08/24 06:22 95 H 149/94 H 04/08/24 03:15 111/75 04/08/24 00:10 36.8 C 96 H 18 139/85 95 Room Air
[2024-04-08 09:34] VITALS: BP 144/92; PULSE 90; TEMP 98.1; O2SAT 96
--- NOTE | 2024-04-08 09:58 | Discharge Summary ---
Date of Service April 08, 2024 Admission HPI Per Admitting Provider Patient is a 24-year-old 1 para 0. She has been well dated with a first trimester ultrasound. Her due date is 04/21/2024. Scheduled for induction on 04/15/2024. Been getting weekly NSTs due to her weight. Received a call from [employer] today. She came in for her NST her blood pressures were elevated. Prior to today they ran in the 124 over 80s range. Today were getting pressures as high as 160/108. She feels good movement. Does not have any symptoms of headache dizziness or epigastric pain. Was placed on a monitor. Monitor showed a baseline in the 150s. With good [id number] variability. And several spontaneous accelerations. Discharge Data Consultations 04/04/24 16:44 Consult Anesthesiology Stat Procedures Performed Operation Date: 04/06/24 12:30 Actual Procedures p Section in delivery of live female child at 1219 - Mo [place]wood MD [place] [facility] Course (1) Elevated blood pressure affecting , antepartum: Plan Patient is a 24-year-old 1 para 1. Status post gastric bypass. Was admitted at 37+ weeks gestation with hypertension. Her pressures came down after admission to the hospital. Her induction was started with p.o. Cytotec. She was given several doses of p.o. Cytotec. She also received IV penicillin. Eventually her membranes were ruptured and she was started on IV Pitocin. She went to full dilatation started to push. Labor was complicated by a prolonged deceleration requiring a stat . She was taken to the OR given general anesthesia. Stat was performed. A tight nuchal cord noted at the time of surgery. Infant's Apgars were good. Postoperatively she did well. She remained afebrile. Her preoperative hemoglobin was 11.1 and her postoperative h emoglobin was 9.1. At the time of discharge she was ambulating well eating well. Pain was well-controlled with a combination of tramadol and Tylenol. He was also on labetalol 100 mg 3 times a day. Was given the usual instructions.
[2024-04-08] MEDS ORDERED: bisacodyL 10 MG SUPP PR PRN (13:24)
[2024-04-09] MEDS ORDERED: traMADol HCL 50 MG TABLET PO PRN (00:31)
== END 2024-04-08 10:55 | disposition home or self-care (01) | DRG 787 ==
LOC: OPB 14:44 → 4S1 14:50 → 4E2 04-06 16:23